=== PATIENT | male | born 1955 | race Caucasian/White ===

== ENCOUNTER 2024-12-30 14:08 | Outpatient (AMB) | payer MEDICARE, SELFPAY ==
--- OUTSIDE RECORDS SUMMARY | 2024-12-30 14:54 | XMS_ITS | Clinical Summary ---
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 Name Role Phone Irish Latif NP Primary Care Provider [phone] Allergies Active Allergy Reactions Criticality Noted Date Comments Pollen Extracts 04/30/2021 Medications simvastatin (ZOCOR) 20 mg tablet TAKE 1 TABLET BY MOUTH EVERYDAY AT BEDTIME 90 tablet 3 05/20/2024 Active pantoprazole (PROTONIX) 40 mg EC tablet TAKE 1 TABLET BY MOUTH EVERY DAY 90 tablet 1 08/13/2024 Active montelukast (SINGULAIR) 10 mg tablet TAKE 1 TABLET BY MOUTH EVERYDAY AT BEDTIME 90 tablet 1 08/13/2024 Active valsartan-hydro CHLOROthiazide (DIOVAN-HCT) 160-25 mg per tablet TAKE 1 TABLET BY MOUTH EVERY DAY 90 tablet 1 08/14/2024 Active gabapentin (NEURONTIN) 300 mg capsule TAKE 1 CAPSULE BY MOUTH FOUR TIMES A DAY 360 capsule 1 08/19/2024 Active diclofenac (VOLTAREN) 75 mg EC tablet TAKE 1 TABLET BY MOUTH 2 TIMES DAILY FOR 60 DAYS. 60 tablet 1 09/30/2024 Active traZODone (DESYREL) 100 mg tablet TAKE 1 TABLET BY MOUTH AT BEDTIME NEEDED FOR SLEEP. 90 tablet 1 10/03/2024 Active Active Problems Problem Noted Date Diagnosed Date Primary insomnia 10/25/2023 Assessment & Plan (10/30/2024 3:29 PM EDT): Stable, continue trazodone. Allergic rhinitis 07/21/2022 Gastroesophageal reflux disease without esophagi tis 07/21/2022 Assessment & Plan (10/30/2024 3:29 PM EDT): GERD: Symptoms controlled on daily PPI. Continue current medication. Discussed lifestyle modifications (e.g. weight loss, waiting 2-3 hrs after eating before going to bed, sleeping with head of bed elevated, avoiding tobacco and alcohol, stress reduction), dietary modifications (e.g. avoiding fatty foods, caffeine, chocolate, spicy foods, carbonated drinks and peppermint), avoid NSAIDs/ASA. Other hyperlipidemia 07/21/2022 Assessment & Plan (10/30/2024 3:29 PM EDT): HLD: controlled on statin. Continue current dose. Reviewed SE associated with statin use. Low cholesterol diet advised as well as exercise and optimal weight control. Update lipid panel today. Assessment & Plan (06/04/2024 2:09 PM EST): Well-controlled lipid profile on current dose statin. Continue Inguinal hernia bilateral, non-recurrent 023 Neuropathy 07/21/2022 Assessment & Plan (10/30/2024 3:29 PM EDT): Stable, continue gabapentin. Ascending aortic aneurysm (CMS/HCC V24) 04/30/20 21 Overview (06/04/2024): His most recent echocardiogram is from 05/2024 revealing normal LVEF 55 to 60%, no wall motion abnormalities, normal LV wall thickness, normal RV size and function, without hemodynamically significant valve disease, and mildly dilated aorta at the sinus of Valsalva and ascending aorta at 4 cm, unchanged when compared to 2021 echo Assessment & Plan (06/04/2024 2:09 PM EST): The patient's aorta size has been stable across multiple echocardiograms. Discussed weight lifting restrictions of no more than 50 pounds, ideally less. We discussed avoiding straining and asking for help if something is heavy. He understands and agrees. Would continue intermittent echocardiographic surveillance every couple of years. Primary hypertension 04/30/2021 Assessment & Plan (10/30/2024 3:29 PM EDT): HTN: controlled. Continue current meds. Reviewed lifestyle mods to help manage HTN Including low sodium diet and exercise and optimal weight control. Check BMP today. Assessment & Plan (06/04/2024 2:09 PM EST): Well-controlled blood pressure on current ARB/thiazide diuretic combination. Continue his regular exercise and walking. Sick sinus syndrome (CMS/HCC V24, CMS/HCC V28) 1 07/01/2020 Overview (06/04/2024): [employer] single chamber pacemaker Noise on RV lead Low RV pacing percentage Assessment & Plan (06/04/2024 2:09 PM EST): The patient's device is normally functioning. He has a very low percent pacing burden. Continue in office and remote surveillance as per protocol Encounters Date Type Department Care Team Description 12/26/2024 1:20 AM EDT Ancillary Procedure [facility] - [address] [facility] [address] [place] [address] 10/31/2024 Telephone Internal Medicine - [address] [address] Irish Latif NP faxed order 10/30/2024 3:30 PM EDT Lab Draw Station - [address] [place] [address] Screening for metabolic disorder; Screening for prostate cancer; Encounter for lipid screening for cardiovascular disease; Screening for deficiency anemia 10/30/2024 3:00 PM EDT Office Visit Internal Medicine - [facility] [address] [place] [address] Irish Latif NP Adult general medical examination (Primary Dx); Screening for deficiency anemia; Screening for metabolic disorder; Encounter for lipid screening for cardiovascular disease; Screening for prostate cancer; Gastroesophageal reflux disease without esophagitis; Other hyperlipidemia; Primary hypertension; Neuropathy; Primary insomnia from Last 3 Months Immunizations Name Administration Dates Next Due COVID-19 (Pfizer/Comirnaty) 12yo and older 01/13 Influenza Quadravalent, 0.5ml (Fluad) 65yo and o lder 03/18/2021 Influenza Quadravalent, 0.5m l (Fluzone High-dose) 65yo and older 02/16/2022 Influenza Quadravalent, MDCK , 0.5ml, preservative free (Flucelvax) 6mo and older 01/30/2019,02/14/2018 Influenza trivalent, 0.5mL (Fluad) 65yo and olde r 01/17/2024,01/23/2023 Influenza trivalent, 0.5mL, preservative free (Fluarix; FluLaval; Fluzone) ages 6mo and older (Afluria) 3 years and older 01/15/2020 Influenza, Unspecified 02/12/2022 Moderna SARS-CoV-2 COVID-19, mRNA, LNP-S, preservative free 01/17/2024 Pfizer SARS-CoV-2 COVID-19, mRNA, LNP-S, preservative free 01/23/2023 Pneumococcal conjugate 20 va lent (Prevnar 20, PCV 20) 2mo and older 10/25/2023 Tdap Tetanus diptheria acell ular pertussis (Boostrix; Adacel) 7yo and older 07/21/2022 Surgical History Surgery Date Site/Laterality Comments OTHER SURGICAL HISTORY PROCEDURE: RI ARTHRP ACETBLR/PROX FEM PROSTC AGRFT/ALGRFT HERNIA REPAIR PROCEDURE: RI REPAIR FIRST ABDOMINAL WALL HERNIA HAND SURGERY 2011 Right PROCEDURE: HISTORICAL HAND SURGERY HIP ARTHROPLASTY 2013 Left PROCEDURE: HISTORICAL HIP REPLACEMENT OTHER SURGICAL HISTORY 2004 PROCEDURE: RI RAD RESECTION TUMOR SOFT TISSUE BACK/FLANK <5CM; COMMENT: resection schwannoma lower spine Medical History Medical History Date Comments Kidney stones DX:Kidney stones Family History Medical History Relation Name Comments Thyroid disease Father Breast cancer Mother Other cancer Mother Diabetes Sister Thyroid disease Sister Relation Name Status Comments Father Alive Mother Sister Social History Tobacco Use Types Packs/Day Years Used Date Smoking Tobacco: Never Smokeless Tobacco: Never Tobacco Cessation:Counseling Given: Not Answered Alcohol Use Standard Drinks/Week Comments Yes 14 (1 standard drink = 0.6 oz pu re alcohol) Housing Instability Answer Date Recorde d Are you worried that in the next 2 months you may not have stable housing? No 10/30/2024 Food Access & Nutrition Answer Date Rec orded Do you have access to a vari ety of food including fruits and vegetables? Yes 10/30/2024 Access to Healthcare Answer Date Record ed Within the last 3 months, ho w many times did you visit the emergency department for your medical care? 0 10/30/2024 Health Literacy Answer Date Recorded How often do you need to hav e someone help you when you read instructions, pamphlets, or other written material from your doctor or pharmacy? Never 10/30/2024 Caregiver: How often do you need to have someone help you when you read instructions, pamphlets, or other written material from your doctor or pharmacy? Not on file 10/30/2024 Financial Risk Answer Date Recorded How hard is it for you to pa y for the very basics like food, housing, medical care, and air conditioning / heating? Not very hard 10/30/2024 Transportation Answer Date Recorded Has the lack of transportati on kept you from meetings, work, or from getting things needed for daily living? No Has the lack of transportati on kept you from medical appointments or from getting medications? No 10/30/2024 Social Isolation Answer Date Recorded How often do you feel lonely or isolated from th ose around you? Never 10/30/2024 Food Risk Answer Date Recorded Within the past 12 months we worried whether our food would run out before we got money to buy more. Never true 10/30/2024 Within the past 12 months th e food we bought just didn't last and we didn't have money to get more. Never true 10/30/2024 Dependent Care Answer Date Recorded Do you need help finding or paying for care for your loved ones. For example, child care attendant or elderly care for an older adult? No 10/30/2024 Education Answer Date Recorded Do you think completing more education or training, like finishing a GED, going to college, or learning a trade, would be helpful for you? N/A 10/30/2024 Employment and Income Answer Date Recor ded During the last four weeks, have you been actively looking for work? No 10/30/2024 Living Situation Answer Date Recorded What is your living situation? 0 10/30/2024 Sex and Gender Information Value Date Recorded Sex Assigned at Not on file Legal Sex Male 6:48 AM EST Gender Identity Not on file Sexual Orientation Not on file Obstetrics History Last Filed Vital Signs Vital Sign Reading Time Taken Comments Blood Pressure 128/80 10/30/2024 3:12 PM EDT Pulse 73 10/30/2024 2:56 PM EDT Temperature - - Respiratory Rate - - Oxygen Saturation 98% 06/04/2024 11: 15 AM EST Inhaled Oxygen Concentration - - Weight 74.8 kg (164 lb 12.8 oz) 10/30/2024 2:56 PM EDT Height 180.3 cm (5' 11 ) 10/30/2024 2:56 PM EDT Body Mass Index 22.98 10/30/2024 2:56 PM EDT Plan of Treatment Upcoming Encounters Date Type Department Care Team (Late st Contact Info) Description 12/31/2024 10:30 AM EDT Ancillary Procedure [facility] - [facility] [address] [facility] [address] [place] [address] 02/18/2025 1:00 PM EDT Office Visit General Surgery - [place] [address] [facility] [address] [place] [address] Hortencia Glynn MD 175 [facility] [address] [place] [address] 05/02/2025 1:00 PM EST Office Visit [facility] - [facility] [address] [place] [address] Irish Latif NP [address] [place] [address] Health Maintenance Due Date Last Done Comments Zoster Vaccines (1 of 2) 2005 COVID-19 Vaccine ( season) 2024 01/17/2024, 01/14/2024, 02/18/2023, Additional history exists Influenza Vaccine (#1) 2025 , 01/23/2023, 02/16/2022, Additional history exists Falls Risk Assessment 10/30/2025 10/30/2024 Hypertension/CHF/CAD Annual BMP Blood Test 10/30/2025 10/30/2024, 04/30/2024, 10/30/2023 Medicare Annual Wellness Visit 10/30/2025 10/30/2024, 07/25/2023 Social Influencers of Health Screening 10/30/2025 10/30/2024 Colorectal Cancer Screening: Colonoscopy 04/30/2027 04/30/2017 Cholesterol Screening (Lipid Panel) 10/30/2029 10/30/2024, 04/30/2024, 07/25/2023 RSV Immunization Adult Patients (1 - 1-dose 75+ series) 2030 DTaP,Tdap,and Td Vaccines (2 - Td or Tdap) 07/21/2032 07/21/2022 Hepatitis C Screening Completed 07/21/2022 Pneumococcal Vaccine: 50+ Years Completed 10/25/2023 Depression Screening Completed 10/30/2024 HIB Vaccines Aged Out No longer eligi ble based on patient's age to complete this topic HPV Vaccines Aged Out No longer eligi ble based on patient's age to complete this topic Hepatitis A Vaccines Aged Out No long er eligible based on patient's age to complete this topic Hepatitis B Vaccines Aged Out No long er eligible based on patient's age to complete this topic IPV Vaccines Aged Out No longer eligi ble based on patient's age to complete this topic MMR Vaccines Aged Out No longer eligi ble based on patient's age to complete this topic Meningococcal ACWY Vaccine Aged Out N o longer eligible based on patient's age to complete this topic Meningococcal B Vaccine Aged Out No l onger eligible based on patient's age to complete this topic RSV Immunization Patients Under 20 months Aged Out No longer eligible based on patient's age to complete this topic Varicella Vaccines Aged Out No longer eligible based on patient's age to complete this topic Medical Devices Implanted Type Area Car Blocker Device Identifier Shelf Expiration Date Model / Serial / Lot Abbt-ju 1210 Accent(Tm) Sr Rf [id number] Implanted: (Quantity not on file) Cardiac Pacemaker [facility] 1210 ACCENT(TM) SR RF / [id number] / Procedures Procedure Name Priority Date/Time Associated Diagnosis Comments CARDIAC DEVICE CHECK- REMOTE- MURJ Routine 12/26/2024 1:16 AM EDT COMPLETE BLOOD COUNT Routine 10/30/2024 3:24 PM EDT Screening for deficiency anemia COMPREHENSIVE METABOLIC PANEL Routine 10/30/2024 3:24 PM EDT Screening for metabolic disorder LIPID PANEL WITH REFLEX TO DIRECT LDL Routine 10/30/2024 3:24 PM EDT Screening for metabolic disorder Encounter for lipid screening for cardiovascular disease PROSTATE SPECIFIC ANTIGEN SCREEN Routine 10/30/2024 3:24 PM EDT Screening for prostate cancer HEMOGLOBIN A1C Routine 10/30/2024 3:24 PM EDT Screening for metabolic disorder HM HEPATITIS C SCREENING Routine 07/21/2022 from Last 3 Months or Most Recently Relevant to Health Maintenance Results * Cardiac device check - Remote- MURJ (12/26/2024 1:16 AM EDT) Date Time Interrogation Session [id number] CV DEVICE CHECK Type Interrogation Session Remote Scheduled CV DEVICE CHECK Implantable Pulse Generator Car Blocker [employer] CV DEVICE CHECK Implantable Pulse Generator Type IPG CV DEVICE CHECK Implantable Pulse Generator Model 1210 Accent(TM) SR RF CV DEVICE CHECK Implantable Pulse Generator Serial Number [id number] CV DEVICE CHECK Implantable Pulse Generator Implant Date [id number] CV DEVICE CHECK Battery Remaining Percentage 27.00 CV DEVICE CHECK Battery Remaining Longevity 38.0 CV DEVICE CHECK Battery Voltage 2.920 CV D EVICE CHECK Battery INSTANTIZER OPERATOR Trigger 2.600 CV DEVICE CHECK Battery Status Middle of Service CV DEVICE CHECK Jc Statistic RV Percent Paced 1.00 CV DEVICE CHECK Lead Channel Sensing Intrinsic Amplitude 4.600 CV DEVICE CHECK Lead Channel Setting Sensing Sensitivity 3.50 CV DEVICE CHECK Lead Channel Impedance Value 340 CV DEVICE CHECK Lead Channel Setting Pacing Amplitude 1.000 CV DEVICE CHECK Lead Channel Setting Pacing Pulse Width 0.5 CV DEVICE CHECK Jc Setting Mode (NBG Code) VVI CV DEVICE CHECK Jc Setting Lower Rate Limit 50 CV DEVICE CHECK Jc Setting Maximum Sensor Rate 130 CV DEVICE CHECK Date of Service 2025-01-10 CV DEVICE CHECK Anatomical Region Laterality Modality Device Interroga tion 12/25/2024 12:1 7 PM EDT Impressions 12/25/2024 1:55 PM EDT Normal Remote: With Events * Normal Device Function * Events or Alerts: Know RV lead noise / Monitoring * Battery: Battery is at 27%, 3.17 yrs * Sensing, impedance and thresholds reviewed * Programmed parameters reviewed * Presenting rhythm reviewed * Heart Rate Histograms reviewed Narrative Procedure Note Barrett Shaffer MD - 12/26/2024 IMPRESSION: Normal Remote: With Events * Normal Device Function * Events or Alerts: Know RV lead noise / Monitoring * Battery: Battery is at 27%, 3.17 yrs * Sensing, impedance and thresholds reviewed * Programmed parameters reviewed * Presenting rhythm reviewed * Heart Rate Histograms reviewed us Barrett Shaffer MD CV IMPLANTABLE CARDIAC DEVICE PROCEDURES Final Result * Prostate specific antigen screen (10/30/2024 3:24 PM EDT) PSA 0.83 0.00 - 4.00 ng/mL LAB CHEMISTRY METHOD 10/30/2024 7:13 PM EDT [facility] Blood Venous blood specimen / Unknown Venipuncture / Unknown 10/30/2024 3:24 PM EDT 10/30/2024 3:24 PM EDT Narrative [facility] - 10/30/2024 7:13 PM EDT The Siemens Advia Centaur Chemiluminescent Immunoassay is used. Results obtained with different assay methods or kits cannot be used interchangeably. Results cannot be interpreted as absolute evidence of the presence or absence of malignant disease. us Irish Latif NP LAB BLOOD ORDERABLES Final Resu lt [facility] [address] [place] [address], [place] [phone] * (ABNORMAL) Lipid panel with reflex to direct LDL (10/30/2024 3:24 PM EDT) [facility] Cholesterol 175 0 - 200 mg/dL LAB CHEMISTRY METHOD 10/30/2024 6:46 PM EDT [facility] Triglycerides 196(H) 0 - 150 mg/dL LAB CHEMISTRY METHOD 10/30/2024 6:46 PM EDT [facility] HDL 51 >=40 mg/dL LAB CHEMISTRY METHOD 10/30/2024 6:46 PM EDT [facility] LDL Calculated 85 0 - 100 mg/dL LAB CHEMISTRY METHOD 10/30/2024 6:46 PM EDT [facility] VLDL Cholesterol José Miguel 39.2 mg/dL LAB CHEMISTRY METHOD 10/30/2024 6:46 PM EDT [facility] Non HDL Chol. (LDL+VLDL) 124 <145 mg/dL LAB CHEMISTRY METHOD 10/30/2024 6:46 PM EDT [facility] Chol/HDL Ratio 3.4 0.0 - 4.4 LAB CHEMISTRY METHOD 10/30/2024 6:46 PM EDT [facility] Blood Venous blood specimen / Unknown Venipuncture / Unknown 10/30/2024 3:24 PM EDT 10/30/2024 3:24 PM EDT Irish Latif BOLT THREADER LAB BLOOD ORDERABLES Final Resu lt [facility] [address] [place] [address], [place] [phone] * Complete blood count (10/30/2024 3:24 PM EDT) [facility] WBC 8.1 4.8 - 10.8 K/mcL LAB HEMETOLOGY METHOD 10/30/2024 6:57 PM EDT [facility] RBC 4.60 4.50 - 5.50 M/mcL LAB HEMETOLOGY METHOD 10/30/2024 6:57 PM EDT [facility] Hemoglobin 14.1 13.5 - 17.5 g/dL LAB HEMETOLOGY METHOD 10/30/2024 6:57 PM EDT [facility] Hematocrit 42.4 42.0 - 54.0 % LAB HEMETOLOGY METHOD 10/30/2024 6:57 PM EDT [facility] MCV 92.2 79.0 - 98.0 FL LAB HEMETOLOGY METHOD 10/30/2024 6:57 PM EDT [facility] MCH 30.7 27.0 - 32.0 pcg LAB HEMETOLOGY METHOD 10/30/2024 6:57 PM EDT [facility] MCHC 33.3 32.0 - 37.0 g/dL LAB HEMETOLOGY METHOD 10/30/2024 6:57 PM EDT [facility] RDW 13.1 11.0 - 15.0 % LAB HEMETOLOGY METHOD 10/30/2024 6:57 PM EDT [facility] Platelets 341 130 - 400 K/mcL LAB HEMETOLOGY METHOD 10/30/2024 6:57 PM EDT [facility] MPV 9.1 7.0 - 11.0 FL LAB HEMETOLOGY METHOD 10/30/2024 6:57 PM EDT [facility] NRBC 0.0 <1.0 % LAB HEMETOLOGY METHOD 10/30/2024 6:57 PM EDT [facility] NRBC Absolute 0.00 <0.10 K/mcL LAB HEMETOLOGY METHOD 10/30/2024 6:57 PM EDT [facility] Blood Venous blood specimen / Unknown Venipuncture / Unknown 10/30/2024 3:24 PM EDT 10/30/2024 3:24 PM EDT Irish Chambersti BOLT THREADER LAB BLOOD ORDERABLES Final Resu lt [facility] [address] [place] [address], [place] [phone] * Hemoglobin A1c (10/30/2024 3:24 PM EDT) Pathologist [facility] Hemoglobin A1C 5.7 <6.5 % LAB CHEMISTRY METHOD 10/30/2024 8:39 PM EDT [facility] Mean Bld Glu Estim. 117 mg/dL LAB CHEMISTRY METHOD 10/30/2024 8:39 PM EDT [facility] Blood Venous blood specimen / Unknown Venipuncture / Unknown 10/30/2024 3:24 PM EDT 10/30/2024 3:24 PM EDT Irish Chambersti LAB BLOOD ORDERABLES Final Resu lt Performing Organization Address City/[facility]/ZIP Co de Phone Number [facility] [address] [place] [address], [place] [phone] * (ABNORMAL) Comprehensive metabolic panel (10/30/2024 3:24 PM EDT) [facility] Sodium 140 133 - 145 mmol/L LAB CHEMISTRY METHOD 10/30/2024 6:46 PM EDT [facility] Potassium 4.0 3.5 - 5.5 mmol/L LAB CHEMISTRY METHOD 10/30/2024 6:46 PM EDT [facility] Chloride 102 96 - 110 mmol/L LAB CHEMISTRY METHOD 10/30/2024 6:46 PM EDT [facility] CO2 30 21 - 32 mmol/L LAB CHEMISTRY METHOD 10/30/2024 6:46 PM EDT [facility] Anion Gap 8 3 - 11 LAB CHEMISTRY METHOD 10/30/2024 6:46 PM EDT [facility] Glucose 100 70 - 100 mg/dL LAB CHEMISTRY METHOD 10/30/2024 6:46 PM [facility] BUN 26(H) 5 - 25 mg/dL LAB CHEMISTRY METHOD 10/30/2024 6:46 PM [facility] Creatinine 0.90 0.70 - 1.30 mg/dL LAB CHEMISTRY METHOD 10/30/2024 6:46 PM [facility] eGFR 92 >=60 mL/min/1. 73m2 LAB CHEMISTRY METHOD 10/30/2024 6:46 PM [facility] Comment:Calculation based on the Chronic Kidney Disease Epidemiology Collaboration (CKD-EPI) equation refit without adjustment for race. BUN/Creatinine Ratio 28.9 LAB CHEMISTRY METHOD 10/30/2024 6:46 PM [facility] Calcium 9.2 8.5 - 10.5 mg/dL LAB CHEMISTRY METHOD 10/30/2024 6:46 PM [facility] AST (SGOT) 18 10 - 42 unit/L LAB CHEMISTRY METHOD 10/30/2024 6:46 PM [facility] ALT (SGPT) 23 10 - 60 unit/L LAB CHEMISTRY METHOD 10/30/2024 6:46 PM [facility] Alkaline Phosphatase 47 42 - 121 unit/L LAB CHEMISTRY METHOD 10/30/2024 6:46 PM [facility] Total Protein 6.7 6.0 - 8.0 g/dL LAB CHEMISTRY METHOD 10/30/2024 6:46 PM [facility] Albumin 4.2 3.2 - 5.0 g/dL LAB CHEMISTRY METHOD 10/30/2024 6:46 PM [facility] Total Bilirubin 1.1 0.0 - 1.4 mg/dL LAB CHEMISTRY METHOD 10/30/2024 6:46 PM [facility] Blood Venous blood specimen / Unknown Venipuncture / Unknown 10/30/2024 3:24 PM EDT 10/30/2024 3:24 PM EDT Irish Latif NP LAB BLOOD ORDERABLES Final Resu lt [facility] [address] [place] [address], [place] [phone] * Hepatitis C Screening (07/21/2022) Hepatitis C Screening negative Historical Provider HEALTH MAINTENANCE Final Result from Last 3 Months or Most Recently Relevant to Health Maintenance Insurance MEDICARE [facility] Advance Directives Documents on File Type Date Recorded 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
--- OUTSIDE RECORDS SUMMARY | 2024-12-30 14:54 | XMS_ITS ---
Author Name [facility] Organization Unknown Care Team Organization Name Specialty Phone Email Start Date End [facility] Irish Latif Primary Care 01/19/20232023
== END 2024-12-30 14:09 | disposition home or self-care (01) ==
LOC: HO.HMGAL 14:08
PROVIDERS: PCP Internal Medicine; Visit Provider Registered Nurse Emergency
DX: J30.89 Other allergic rhinitis (principal)
CPT/HCPCS: 95117; 95165

== ENCOUNTER 2025-01-20 13:52 | Outpatient (AMB) | payer MEDICARE, SELFPAY ==
--- OUTSIDE RECORDS SUMMARY | 2025-01-20 16:14 | XMS_ITS | Clinical Summary ---
Author Organization [place] [address] [facility] Building Address [address] [place] [address] Phone Care Team Providers Care Exercise Physiology Professor Name Role Phone Irish Latif NP Primary Care Provider [phone] Allergies Active Allergy Reactions Criticality Noted Date [...] CMS/HCC V28) 1 07/01/2020 Overview (06/04/2024): [employer] single chamber pacemaker Noise on RV lead Low RV pacing percentage Assessment & Plan (06/04/2024 2:09 PM EST): The patient's device is normally functioning. He has a very low percent pacing burden. Continue in office and remote surveillance as per protocol Encounters Date Type Department Care Team Description 12/31/2024 10:30 AM EDT Ancillary Procedure [facility] Cardiology [facility] [address] [address] Encounter for adjustment or management of cardiac device 12/26/2024 1:20 AM EDT Ancillary Procedure [facility] 154 300 [facility] 154 [place] [address] 10/31/2024 Telephone Internal Medicine - [address] [phone] Irish Latif NP 10/30/2024 3:30 PM EDT Lab Draw Station - [address] [address] Screening for metabolic disorder; Screening for prostate cancer; Encounter for lipid screening for cardiovascular disease; Screening for deficiency anemia 10/30/2024 3:00 PM EDT Office Visit Internal Medicine - [address] [place] [address] Irish Latif, CORAL Adult general medical examination (Primary Dx); Screening [...] Date Site/Laterality Comments OTHER SURGICAL HISTORY PROCEDURE: [place] ARTHRP ACETBLR/PROX FEM PROSTC AGRFT/ALGRFT HERNIA REPAIR PROCEDURE: [place] REPAIR FIRST ABDOMINAL WALL HERNIA HAND SURGERY 2011 Right PROCEDURE: HISTORICAL HAND SURGERY HIP ARTHROPLASTY 2013 Left PROCEDURE: HISTORICAL HIP REPLACEMENT OTHER SURGICAL HISTORY 2004 PROCEDURE: [place] RAD RESECTION TUMOR SOFT TISSUE BACK/FLANK <5CM; [...] care for your loved ones. For example, early childhood associate teacher or elderly care for an older adult? [...] Care Team (Late st Contact Info) Description 02/25/2025 1:30 PM EDT Office Visit General Surgery - [place] [facility] [address] [place] [phone] Hortencia Glynn MD [address] [place] [phone] 05/02/2025 1:00 PM EST Office Visit Internal Medicine - [place] [address] [place] [address] Irish Latif NP [address] [place] [address] 01/06/2026 10:30 AM EDT Ancillary Procedure [facility] 154 300 [facility] [address] [place] [phone] Health Maintenance Due Date Last Done Comments Zoster Vaccines (1 of 2) 2005 COVID-19 Vaccine ( season) 2025 01/17/2024, 01/14/2024, 02/18/2023, Additional history exists Influenza [...] this topic Medical Devices Implanted Type Area Appellate Law Clerk Device Identifier Shelf Expiration Date Model / Serial / Lot Abbt-Stju 1210 Accent(Tm) Sr Rf [id number] Implanted: (Quantity not on file) Cardiac Pacemaker [facility] [employer] [facility] [employer] 1210 ACCENT(TM) SR RF / [id number] / Abbt-Stju Accent Sr Rf [id number] Implanted: (Quantity not on file) Cardiac Pacemaker [facility] [facility] ACCENT SR RF 1210 / [id number] / Procedures Procedure Name Priority Date/Time Associated Diagnosis Comments CARDIAC DEVICE CHECK- IN CLINIC- MURJ Routine 12/31/2024 11:06 AM EDT Encounter for adjustment or management of cardiac device CARDIAC DEVICE CHECK- REMOTE- MURJ Routine 12/26/2024 [...] Recently Relevant to Health Maintenance Results * CARDIAC DEVICE CHECK- IN CLINIC- MURJ (12/31/2024 11:06 AM EDT) Date Time Interrogation Session [id number] CV DEVICE CHECK Implantable Pulse Generator Appellate Law Clerk [employer]ake CV DEVICE CHECK Implantable Pulse Generator Type IPG CV DEVICE CHECK Implantable Pulse Generator Model Accent SR RF 1210 CV DEVICE CHECK Implantable Pulse Generator Serial Number [id number] CV DEVICE CHECK Implantable Pulse Generator Implant Date 20130902 CV DEVICE CHECK Battery Voltage 2.920 CV D EVICE CHECK Battery Status Middle of Service CV DEVICE CHECK Lead Channel Sensing Intrinsic Amplitude 7.200 CV DEVICE CHECK Lead Channel Setting Sensing Sensitivity 3.50 CV DEVICE CHECK Lead Channel Impedance Value 363 CV DEVICE CHECK Lead Channel Pacing Threshold Amplitude 0.750 CV DEVICE CHECK Lead Channel RV Pacing Threshold Date 2024-12-31 CV DEVICE CHECK Lead Channel Setting Pacing Amplitude 1.000 CV DEVICE CHECK Lead Channel Setting Pacing Pulse Width 0.5 CV DEVICE CHECK Jc Setting Mode (NBG Code) VVI CV DEVICE CHECK Jc Setting Lower Rate Limit 50 CV DEVICE CHECK Jc Setting Maximum Sensor Rate 130 CV DEVICE CHECK Date of Service 2025-01-01 CV DEVICE CHECK Anatomical Region Laterality Modality Device Interroga tion 12/31/2024 Impressions 01/03/2025 8:59 AM EDT Normal In-Office: No Events * Normal Device Function * Alerts or events: None * Battery: MOS, 3.10 yrs * Sensing, impedance and thresholds reviewed and tested * Presenting Rhythm: VS 70s * Heart Rate Histograms reviewed * Pacing and Detection Parameters were evaluated Narrative Procedure Note Barrett Shaffer MD - 01/03/2025 IMPRESSION: Normal In-Office: No Events * Normal Device Function * Alerts or events: None * Battery: MOS, 3.10 yrs * Sensing, impedance and thresholds reviewed and tested * Presenting Rhythm: VS 70s * Heart Rate Histograms reviewed * Pacing and Detection Parameters were evaluated us Order Referral Cardiovascular CV IMPLANTABLE CAR DIAC DEVICE PROCEDURES Final Result * Cardiac device check - Remote- MURJ (12/26/2024 1:16 AM EDT) Date Time Interrogation Session [id number] CV DEVICE CHECK Type Interrogation Session Remote Scheduled CV DEVICE CHECK Implantable Pulse Generator Appellate Law Clerk [employer]ake CV DEVICE CHECK Implantable Pulse Generator Type IPG CV DEVICE CHECK Implantable Pulse Generator Model 1210 Accent(TM) SR RF CV DEVICE CHECK Implantable Pulse Generator Serial Number [id number] CV DEVICE CHECK Implantable Pulse Generator Implant Date 20130902 CV DEVICE CHECK Battery Remaining Percentage 27.00 CV DEVICE CHECK Battery Remaining Longevity 38.0 CV DEVICE CHECK Battery Voltage 2.920 CV D EVICE CHECK Battery MANAGER MOBILE Trigger 2.600 CV DEVICE CHECK Battery Status [...] rhythm reviewed * Heart Rate Histograms reviewed Barrett Shaffer MD CV IMPLANTABLE CARDIAC DEVICE PROCEDURES Final Result * Prostate specific antigen screen (10/30/2024 3:24 PM EDT) PSA 0.83 0.00 - 4.00 ng/mL LAB CHEMISTRY METHOD 10/30/2024 7:13 PM EDT [facility] Blood Venous blood specimen / Unknown Venipuncture / Unknown 10/30/2024 3:24 PM EDT 10/30/2024 3:24 PM EDT Narrative [facility] - 10/30/2024 7:13 PM EDT The Siemens Advia Centaur Chemiluminescent Immunoassay is used. Results obtained with different assay methods or kits cannot be used interchangeably. Results cannot be interpreted as absolute evidence of the presence or absence of malignant disease. Irish Latif NP LAB BLOOD ORDERABLES Final Resu lt Performing Organization Address City/[facility]/ZIP Co de Phone Number [facility] [address] [place] [address], [place] [phone] * (ABNORMAL) Lipid panel with reflex to direct LDL (10/30/2024 3:24 PM EDT) [facility] Cholesterol 175 0 - 200 mg/dL LAB CHEMISTRY METHOD 10/30/2024 6:46 PM EDT [facility] Triglycerides 196(H) 0 - 150 mg/dL LAB CHEMISTRY METHOD 10/30/2024 6:46 PM EDT [facility] HDL 51 >=40 mg/dL LAB CHEMISTRY METHOD 10/30/2024 6:46 PM EDT [facility] LDL Calculated 85 0 - 100 mg/dL LAB CHEMISTRY METHOD 10/30/2024 6:46 PM EDT [facility] VLDL Cholesterol José Miguel 39.2 mg/dL LAB CHEMISTRY METHOD 10/30/2024 6:46 PM EDT [facility] Non HDL Chol. (LDL+VLDL) 124 <145 mg/dL LAB CHEMISTRY METHOD 10/30/2024 6:46 PM EDT [facility] Chol/HDL Ratio 3.4 0.0 - 4.4 LAB CHEMISTRY METHOD 10/30/2024 6:46 PM EDT [facility] Blood Venous blood specimen / Unknown Venipuncture / Unknown 10/30/2024 3:24 PM EDT 10/30/2024 3:24 PM EDT Irish Latif NP LAB BLOOD ORDERABLES Final Resu lt Performing Organization Address [facility]/ZIP Co de Phone Number [facility] [address] [place] [address], * Complete blood count (10/30/2024 3:24 PM EDT) [facility] WBC 8.1 4.8 - 10.8 K/mcL LAB HEMETOLOGY METHOD 10/30/2024 6:57 PM EDT [facility] RBC 4.60 4.50 - 5.50 M/mcL LAB HEMETOLOGY METHOD 10/30/2024 6:57 PM EDT [facility] Hemoglobin 14.1 13.5 - 17.5 g/dL LAB HEMETOLOGY METHOD 10/30/2024 6:57 PM EDT [facility] Hematocrit 42.4 42.0 - 54.0 % LAB HEMETOLOGY METHOD 10/30/2024 6:57 PM EDT [facility] MCV 92.2 79.0 - 98.0 FL LAB HEMETOLOGY METHOD 10/30/2024 6:57 PM EDT [facility] MCH 30.7 27.0 - 32.0 pcg LAB HEMETOLOGY METHOD 10/30/2024 6:57 PM EDT [facility] MCHC 33.3 32.0 - 37.0 g/dL LAB HEMETOLOGY METHOD 10/30/2024 6:57 PM EDT [facility] RDW 13.1 11.0 - 15.0 % LAB HEMETOLOGY METHOD 10/30/2024 6:57 PM EDT [facility] Platelets 341 130 - 400 K/mcL LAB HEMETOLOGY METHOD 10/30/2024 6:57 PM EDT [facility] MPV 9.1 7.0 - 11.0 FL LAB HEMETOLOGY METHOD 10/30/2024 6:57 PM EDT [facility] NRBC 0.0 <1.0 % LAB HEMETOLOGY METHOD 10/30/2024 6:57 PM EDT [facility] NRBC Absolute 0.00 <0.10 K/[facility] LAB HEMETOLOGY METHOD 10/30/2024 6:57 PM EDT [facility] Blood Venous blood specimen / Unknown Venipuncture / Unknown 10/30/2024 3:24 PM EDT 10/30/2024 3:24 PM EDT [facility] LAB BLOOD ORDERABLES Final Resu lt Performing Organization Address City/[facility]/ZIP Co de Phone Number [facility] [address] [place] [address], [place] [phone] * Hemoglobin A1c (10/30/2024 3:24 PM EDT) Hemoglobin A1C 5.7 <6.5 % LAB CHEMISTRY METHOD 10/30/2024 8:39 PM EDT [facility] Mean Bld Glu Estim. 117 mg/dL LAB CHEMISTRY METHOD 10/30/2024 8:39 PM EDT [facility] Blood Venous blood specimen / Unknown Venipuncture / Unknown 10/30/2024 3:24 PM EDT 10/30/2024 3:24 PM EDT Irish Latif LAB BLOOD ORDERABLES Final Resu lt Performing Organization Address City/[facility]/ZIP Co de Phone Number [facility] [address] [place] [address], [place] [phone] * (ABNORMAL) Comprehensive metabolic panel (10/30/2024 3:24 PM EDT) Pathologist [facility] Sodium 140 133 - 145 mmol/L LAB CHEMISTRY METHOD 10/30/2024 6:46 PM EDT [facility] Potassium 4.0 3.5 - 5.5 mmol/L LAB CHEMISTRY METHOD 10/30/2024 6:46 PM EDT [facility] Chloride 102 96 - 110 mmol/L LAB CHEMISTRY METHOD 10/30/2024 6:46 PM [facility] CO2 30 21 - 32 mmol/L LAB CHEMISTRY METHOD 10/30/2024 6:46 PM [facility] Anion Gap 8 3 - 11 LAB CHEMISTRY METHOD 10/30/2024 6:46 PM [facility] Glucose 100 70 - 100 mg/dL LAB CHEMISTRY METHOD 10/30/2024 6:46 PM [facility] BUN 26(H) 5 - 25 mg/dL LAB CHEMISTRY METHOD 10/30/2024 6:46 PM [facility] Creatinine 0.90 0.70 - 1.30 mg/dL LAB CHEMISTRY METHOD 10/30/2024 6:46 PM [facility] eGFR 92 >=60 mL/min/1. 73m2 LAB CHEMISTRY METHOD 10/30/2024 6:46 PM [facility] Comment:Calculation based on the Chronic Kidney Disease Epidemiology Collaboration (CKD-EPI) equation refit without adjustment for race. BUN/Creatinine Ratio 28.9 LAB CHEMISTRY METHOD 10/30/2024 6:46 PM [facility] Calcium 9.2 8.5 - 10.5 mg/dL LAB CHEMISTRY METHOD 10/30/2024 6:46 PM [facility] AST (SGOT) 18 10 - 42 unit/L LAB CHEMISTRY METHOD 10/30/2024 6:46 PM [facility] ALT (SGPT) 23 10 - 60 unit/L LAB CHEMISTRY METHOD 10/30/2024 6:46 PM [facility] Alkaline Phosphatase 47 42 - 121 unit/L LAB CHEMISTRY METHOD 10/30/2024 6:46 PM [facility] Total Protein 6.7 6.0 - 8.0 g/dL LAB CHEMISTRY METHOD 10/30/2024 6:46 PM [facility] Albumin 4.2 3.2 - 5.0 g/dL LAB CHEMISTRY METHOD 10/30/2024 6:46 PM EDT [facility] Total Bilirubin 1.1 0.0 - 1.4 mg/dL LAB CHEMISTRY METHOD 10/30/2024 6:46 PM EDT [facility] Blood Venous blood specimen / Unknown Venipuncture / Unknown 10/30/2024 3:24 PM EDT 10/30/2024 3:24 PM EDT Irish Latif MOBILE SOLUTIONS ARCHITECT LAB BLOOD ORDERABLES Final Resu lt [facility] [address] [place] [address], * Hepatitis C Screening (07/21/2022) [facility] Signature Hepatitis C Screening negative Historical Provider HEALTH MAINTENANCE Final Result from Last 3 Months or Most Recently Relevant to Health Maintenance Insurance MEDICARE [facility] Advance Directives Documents on File Type Date Recorded Patient Obstetrics Specialist Expl anation Health Care Decision (hx) 09/21/2022 HE ALTH CARE PROXY Care Teams Exercise Physiology Professor Relationship Specialty Start Date End Date Irish Latif NP [address] [facility] [place] [address] PCP - General 05/03/22
== END 2025-01-20 14:05 | disposition home or self-care (01) ==
LOC: HO.HMGAL 13:52
PROVIDERS: PCP Internal Medicine; Visit Provider Registered Nurse Emergency
DX: J30.89 Other allergic rhinitis (principal)
CPT/HCPCS: 95117; 95165

== ENCOUNTER 2025-02-03 14:21 | Outpatient (AMB) | payer MEDICARE, SELFPAY | END 2025-02-03 14:23 | disposition home or self-care (01) | LOC: HO.HMGAL 14:21 | PROVIDERS: PCP Internal Medicine; Visit Provider Registered Nurse Emergency | DX: J30.89 Other allergic rhinitis (principal) | CPT/HCPCS: 95117; 95165 ==

== ENCOUNTER 2025-02-17 12:30 | Outpatient (AMB) | payer MEDICARE, SELFPAY ==
--- OUTSIDE RECORDS SUMMARY | 2025-02-17 14:50 | XMS_ITS | Clinical Summary ---
Author Organization [place] [address] [facility] Building Address [address] [place] [address] [place] [address] Phone Care Team Providers Care Counseling Center Director Name Role Phone Irish Latif NP Primary Care Provider [phone] Allergies Active Allergy Reactions Criticality Noted Date Comments Pollen Extracts 04/30/2021 Medications simvastatin (ZOCOR) 20 mg tablet TAKE 1 TABLET BY MOUTH EVERYDAY AT BEDTIME 90 tablet 3 5 Active valsartan-hydr oCHLOROthiazid e (DIOVAN-HCT) 160-25 mg per tablet TAKE 1 TABLET BY MOUTH EVERY DAY 90 tablet 1 5 Active diclofenac (VOLTAREN) 75 mg EC tablet TAKE 1 TABLET BY MOUTH 2 TIMES DAILY FOR 60 DAYS. 60 tablet 1 5 Active traZODone (DESYREL) 100 mg tablet TAKE 1 TABLET BY MOUTH AT BEDTIME NEEDED FOR SLEEP. 90 tablet 1 5 Active pantoprazole (PROTONIX) 40 mg EC tablet TAKE 1 TABLET BY MOUTH EVERY DAY 90 tablet 1 5 Active montelukast (SINGULAIR) 10 mg tablet TAKE 1 TABLET BY MOUTH EVERYDAY AT BEDTIME 90 tablet 1 5 Active gabapentin (NEURONTIN) 300 mg capsule TAKE 1 CAPSULE BY MOUTH FOUR TIMES A DAY 360 capsule 1 5 Active pantoprazole (PROTONIX) 40 mg EC tablet TAKE 1 TABLET BY MOUTH EVERY DAY 90 tablet 1 5 025 Discontinued montelukast (SINGULAIR) 10 mg tablet TAKE 1 TABLET BY MOUTH EVERYDAY AT BEDTIME 90 tablet 1 5 025 Discontinued gabapentin (NEURONTIN) 300 mg capsule TAKE 1 CAPSULE BY MOUTH FOUR TIMES A DAY 360 capsule 1 5 025 Discontinued Active Problems Problem Noted Date Diagnosed Date [...] Description 12/31/2024 10:30 AM EDT Ancillary Procedure [facility] Cardiology [facility] - [address] [place] [phone] Encounter for adjustment or management of cardiac device 12/26/2024 1:20 AM EDT Ancillary Procedure [facility] Cardiology [facility] - [address] [place] [address] from Last 3 Months Immunizations Immunization Administration Dates Next Due COVID-19 (Pfizer/Comirnaty) 12yo and older 01/13 Influenza Quadravalent, 0.5m l (Fluad) 65yo and older 03/18/2021 Influenza Quadravalent, 0.5m l (Fluzone High-dose) 65yo and older 02/16/2022 Influenza Quadravalent, MDCK , 0.5ml, preservative free (Flucelvax) 6mo and older 01/30/2019,02/14/2018 Influenza trivalent, 0.5mL ( Fluad) 65yo and older 02/13/2025,01/17/2024,01/23/2023 Influenza trivalent, 0.5mL, preservative free (Fluarix; FluLaval; [...] Date Site/Laterality Comments OTHER SURGICAL HISTORY PROCEDURE: [place] ARTHRP ACETBLR/PROX FEM PROSTC AGRFT/ALGRFT HERNIA REPAIR PROCEDURE: [place] REPAIR FIRST ABDOMINAL WALL HERNIA HAND SURGERY 2011 Right PROCEDURE: HISTORICAL HAND SURGERY HIP ARTHROPLASTY 2013 Left PROCEDURE: HISTORICAL HIP REPLACEMENT OTHER SURGICAL HISTORY 2004 PROCEDURE: [place] RAD RESECTION TUMOR SOFT TISSUE BACK/FLANK <5CM; [...] for your loved ones. For example, child development director or elderly care for an older adult? [...] Date Recorded What is your living situation? Unrecognized valu e 10/30/2024 Sex and Gender Information Value Date [...] PM EDT Office Visit General Surgery - [place] [address] [facility] [address] [place] [phone] Hortencia Glynn MD [address] [place] [phone] 05/02/2025 1:00 PM EST Office Visit Internal Medicine - [facility] [address] [place] [address] Irish Latif NP [address] [place] [address] 01/06/2026 10:30 AM EDT Ancillary Procedure [facility] [address] [facility] [address] [place] [phone] Health Maintenance Due Date Last Done Comments Zoster Vaccines (1 of 2) 2005 Falls Risk Assessment 10/30/2025 10/30/2024 Hypertension/CHF/CAD Annual [...] 07/21/2032 07/21/2022 Hepatitis C Screening Completed 07/21/2022 Abdominal Aortic Aneurysm (AAA) Screen Discontinued 10/25/2023 Pneumococcal Vaccine: 50+ Years Completed 10/25/2023 Depression Screening Completed 10/30/2024 COVID-19 Vaccine Completed 02/13/2025, 08/2023, 01/14/2024, Additional history exists Influenza Vaccine Completed 02/13/2025, , 01/23/2023, Additional history exists HIB Vaccines Aged Out No longer eligi [...] this topic Medical Devices Implanted Type Area Retail General Manager Device Identifier Shelf Expiration Date Model / Serial / Lot Abbt-Stju 1210 Accent(Tm) Sr Rf [id number] Implanted: (Quantity not on file) Cardiac Pacemaker [facility] 1210 ACCENT(TM) SR RF / [id number] / Abbt-Stju Accent Sr Rf [id number] Implanted: (Quantity not on file) Cardiac Pacemaker [facility] [employer] ACCENT SR RF 1210 / [id number] / Procedures Procedure Name Priority Date/Time Associated Diagnosis Comments CARDIAC DEVICE CHECK- IN CLINIC- MURJ Routine 12/31/2024 11:06 AM EDT Encounter for adjustment or management of cardiac device CARDIAC DEVICE CHECK- REMOTE- MURJ Routine 12/26/2024 1:16 AM EDT COMPREHENSIVE METABOLIC PANEL Routine 10/30/2024 3:24 PM EDT Screening for metabolic disorder LIPID PANEL WITH REFLEX TO DIRECT LDL Routine 10/30/2024 3:24 PM EDT Screening for metabolic disorder Encounter for lipid screening for cardiovascular disease HM HEPATITIS C SCREENING Routine 07/21/2022 from Last 3 Months or Most Recently Relevant to Health Maintenance Results * CARDIAC DEVICE CHECK- IN CLINIC- MURJ (12/31/2024 11:06 AM EDT) Date Time Interrogation Session [id number] CV DEVICE CHECK Implantable Pulse Generator Retail General Manager [employer] CV DEVICE CHECK Implantable Pulse Generator Type IPG CV DEVICE CHECK Implantable Pulse Generator Model Accent SR RF 1210 CV DEVICE CHECK Implantable Pulse Generator Serial Number [id number] CV DEVICE CHECK Implantable Pulse Generator Implant [...] 1:16 AM EDT) Date Time Interrogation Session [id number] CV DEVICE CHECK Type Interrogation Session Remote Scheduled CV DEVICE CHECK Implantable Pulse Generator Retail General Manager [employer] CV DEVICE CHECK Implantable Pulse Generator Type IPG CV DEVICE CHECK Implantable Pulse Generator Model 1210 Accent(TM) SR RF CV DEVICE CHECK Implantable Pulse Generator Serial Number [id number] CV DEVICE CHECK Implantable Pulse Generator Implant Date 20130902 CV DEVICE CHECK Battery Remaining Percentage 27.00 CV DEVICE CHECK Battery Remaining Longevity 38.0 CV DEVICE CHECK Battery Voltage 2.920 CV D EVICE CHECK Battery FACE WORKER Trigger 2.600 CV DEVICE CHECK Battery Status [...] IMPLANTABLE CARDIAC DEVICE PROCEDURES Final Result * (ABNORMAL) Lipid panel with reflex to direct LDL (10/30/2024 3:24 PM EDT) Cholesterol 175 0 - 200 mg/dL LAB CHEMISTRY METHOD 10/30/2024 6:46 PM [facility] Triglycerides 196(H) 0 - 150 mg/dL LAB CHEMISTRY METHOD 10/30/2024 6:46 PM [facility] HDL 51 >=40 mg/dL LAB CHEMISTRY METHOD 10/30/2024 6:46 PM [facility] LDL Calculated 85 0 - 100 mg/dL LAB CHEMISTRY METHOD 10/30/2024 6:46 PM [facility] VLDL Cholesterol José Miguel 39.2 mg/dL LAB CHEMISTRY METHOD 10/30/2024 6:46 PM [facility] Non HDL Chol. (LDL+VLDL) 124 <145 mg/dL LAB CHEMISTRY METHOD 10/30/2024 6:46 PM [facility] Chol/HDL Ratio 3.4 0.0 - 4.4 LAB CHEMISTRY METHOD 10/30/2024 6:46 PM [facility] Blood Venous blood specimen / Unknown Venipuncture / Unknown 10/30/2024 3:24 PM EDT 10/30/2024 3:24 PM EDT us Irish Latif NP LAB BLOOD ORDERABLES Final Resu lt [facility] [address] [place] [address], [place] [phone] * (ABNORMAL) Comprehensive metabolic panel (10/30/2024 3:24 PM EDT) Sodium 140 133 - 145 mmol/L LAB CHEMISTRY METHOD 10/30/2024 6:46 PM EDT [facility] Potassium 4.0 3.5 - 5.5 mmol/L LAB CHEMISTRY METHOD 10/30/2024 6:46 PM [facility] Chloride 102 96 - 110 mmol/L LAB CHEMISTRY METHOD 10/30/2024 6:46 PM [facility] CO2 30 21 - 32 mmol/L LAB CHEMISTRY METHOD 10/30/2024 6:46 PM T [facility] Anion Gap 8 3 - 11 LAB CHEMISTRY METHOD 10/30/2024 6:46 PM [facility] Glucose 100 70 - 100 mg/dL LAB CHEMISTRY METHOD 10/30/2024 6:46 PM [facility] BUN 26(H) 5 - 25 mg/dL LAB CHEMISTRY METHOD 10/30/2024 6:46 PM T [facility] Creatinine 0.90 0.70 - 1.30 mg/dL LAB CHEMISTRY METHOD 10/30/2024 6:46 PM [facility] eGFR 92 >=60 mL/min/1. 73m2 LAB CHEMISTRY METHOD 10/30/2024 6:46 PM [facility] Comment:Calculation based on the Chronic Kidney Disease Epidemiology Collaboration (CKD-EPI) equation refit without adjustment for race. BUN/Creatinine Ratio 28.9 LAB CHEMISTRY METHOD 10/30/2024 6:46 PM T [facility] Calcium 9.2 8.5 - 10.5 mg/dL LAB CHEMISTRY METHOD 10/30/2024 6:46 PM EDT [facility] AST (SGOT) 18 10 - 42 unit/L LAB CHEMISTRY METHOD 10/30/2024 6:46 PM EDT [facility] ALT (SGPT) 23 10 - 60 unit/L LAB CHEMISTRY METHOD 10/30/2024 6:46 PM EDT [facility] Alkaline Phosphatase 47 42 - 121 unit/L LAB CHEMISTRY METHOD 10/30/2024 6:46 PM EDT [facility] Total Protein 6.7 6.0 - 8.0 g/dL LAB CHEMISTRY METHOD 10/30/2024 6:46 PM EDT [facility] Albumin 4.2 3.2 - 5.0 g/dL LAB CHEMISTRY METHOD 10/30/2024 6:46 PM EDT [facility] Total Bilirubin 1.1 0.0 - 1.4 mg/dL LAB CHEMISTRY METHOD 10/30/2024 6:46 PM EDT [facility] Blood Venous blood specimen / Unknown Venipuncture / Unknown 10/30/2024 3:24 PM EDT 10/30/2024 3:24 PM EDT Irish Latif SALES DATA ANALYST LAB BLOOD ORDERABLES Final Resu lt [facility] [address] [place] [address], * Hepatitis C Screening (07/21/2022) Hepatitis C Screening negative Historical Provider HEALTH MAINTENANCE Final Result from Last 3 Months or Most Recently Relevant to Health Maintenance Insurance MEDICARE [facility] Advance Directives Documents on File Type Date Recorded Patient Distribution Associate Expl anation Health Care Decision (hx) 09/21/2022 HE ALTH CARE PROXY Care Teams Counseling Center Director Relationship Specialty Start Date End Date Irish Latif NP [address] [place], [place] [address] [address] PCP - General 05/03/22
== END 2025-02-17 12:34 | disposition home or self-care (01) ==
LOC: HO.HMGAL 12:30
PROVIDERS: PCP Internal Medicine; Visit Provider Registered Nurse Emergency
DX: J30.89 Other allergic rhinitis (principal)
CPT/HCPCS: 95117; 95165

== ENCOUNTER 2025-03-03 13:59 | Outpatient (AMB) | payer MEDICARE, SELFPAY ==
--- OUTSIDE RECORDS SUMMARY | 2025-03-03 17:35 | XMS_ITS | Data Portability ---
Author Organization [place] - [facility] Surgeons [facility], [facility] Address [address] [place] [address] Care Team Providers Care Recording Artist Name Role Phone CHRISTIN WILSON Referring Provider [phone] Assessment Encounter Date Assessment Date Assessment LastModified by Organization Details LastModified Time 09/05/2023 09/05/2023 A: Pt has multiple TP's in his L glutes. Less discomfort after treatment. No pain with pre's. P: Continue per plan of care. Pt encouraged to stretch prior to and after golfing and to release TP's using a cane or a firm ball (raquetball). [email or web address] Not available 09/05/2023 16:08:41 09/07/2023 09/07/2023 A: Pt has fewer TP's in his L gluteal, x1 in R gluteal. Pt denied pain with therex. No pain with standing or walking in L hip/gluteal. P: Continue per plan of care. [email or web address] Not available 09/07/2023 13:55:06 09/11/2023 09/11/2023 A: Pt has some hip extensor weakness on his right side. TP's are decreasing. P: Continue per plan of care. Not available 09/11/2023 12:06:32 09/18/2023 09/18/2023 A: Pt was able to be on his boat for 10 hours without LB, gluteal or hip pain. P: Continue per plan of care. Progress HEP next visit. Plan to D/C. [email or web address] Not available 09/18/2023 15:06:55 09/21/2023 09/21/2023 A: Pt has progressed well with treatments. He will continue with his HEP. P: D/C w HEP Not available 09/21/2023 12:20:07 Plan of Treatment Reminders Order Date Submit Date Provider Last Modified By Organization Details Last Modified Time Details Appointments None record ed. Lab None record ed. Referral None record ed. Procedures None record ed. Surgeries None record ed. Imaging None record ed. Medication Orders None record ed. Patient TargetsNo targets recorded. Patient InstructionsNo instructions recorded. Reason for Referral None Reported. Problems Name Problem SNOMED Code Status Onset Date Resolution Date Notes Provider Name and Address Organization Details Recorded Time No complaints [id number] Active Status : 'I'; Not Available [facility] 4 09:11:12 Problem Notes None recorded. Procedures Surgical History Date Name Laterality Status Provider Name and Address Organization Details Recorded Time 4 16452 Therapeutic Exercise (1:1) completed Richard Saunders PT [address], [place], [address], [facility] 09/21/2023 12:19:23 4 29177: Manual therapy completed Richard Saunders PT [address], [place], [address], [facility] 09/19/2023 15:46:44 4 85028 Therapeutic Exercise (1:1) completed Debora Salinas, CONTRACTING SPECIALIST [address], [place], [address], [facility] 09/18/2023 15:07:20 4 60479: Manual therapy completed Debora Salinas PTA [address], [place], [address], [facility] 09/18/2023 15:07:28 4 39930 Therapeutic Exercise (1:1) completed Richard Saunders PT [address], [place], [address], [facility] 09/11/2023 11:35:35 4 39236: Manual therapy completed Richard Saunders PT [address], [place], [address], [facility] 09/11/2023 11:35:17 4 99172 Therapeutic Exercise (1:1) completed Debora Salinas, CONTRACTING SPECIALIST [address], [place], [address], [facility] 09/07/2023 13:55:14 4 72658: Manual therapy completed Debora Salinas, CONTRACTING SPECIALIST [address], [place], [address], [facility] 09/07/2023 13:55:12 4 41581 Therapeutic Exercise (1:1) completed Debora Salinas, CONTRACTING SPECIALIST [address], [place], [address], [facility] 09/05/2023 14:49:22 4 68324: Manual therapy completed Debora Salinas, CONTRACTING SPECIALIST [address], [place], [address], [facility] 09/05/2023 16:06:41 4 27337 Therapeutic Exercise (1:1) completed Richard Saunders, PT [address], [place], [address], [facility] 09/01/2023 13:43:37 4 45960: Manual therapy completed Richard Saunders PT [address], [place], [address], [facility] 09/01/2023 13:43:39 4 17257 Therapeutic Exercise (1:1) completed Richard Saunders PT [address], [place], [address], [facility] 08/29/2023 10:35:36 4 77781: Low complexity PT Eval completed Richard Saunders, PT [address], [place], [address], [facility] 08/29/2023 10:26:06 4 G8421 BMI Not Calculated, Reason Not Specified completed Richard Saunders, PT [address], [place], [address], [facility] 08/29/2023 10:25:50 4 G8427 Current Medication Documented completed Richard Saunders, PT [address], [place], [address], [facility] 08/29/2023 10:25:58 Imaging Results None recorded. Procedure Notes None recorded. Medical Equipment None Reported. Medications Name Sig Start Date Stop Date Status Note LastModified by Organization Details LastModified Time amoxicillin 500 mg capsule TAKE 4 CAPSULES BY MOUTH 1 HOUR PRIOR TO DENTAL APPOINTMENT active Not Available Not Available Not Available tamsulosin 0.4 mg capsule TAKE 1 CAPSULE BY MOUTH DAILY. TAKE 30 MINS AFTER SAME MEAL EVERY DAY. active Not Available Not Available No t Available trazodone 100 mg tablet TAKE 1 TABLET BY MOUTH EVERY DAY AT BEDTIME NEEDED FOR SLEEP active Not Available Not Available No t Available pantoprazole 40 mg tablet,delay ed release TAKE 1 TABLET BY MOUTH EVERY DAY active Not Available Not Available No t Available simvastatin 20 mg tablet TAKE 1 TABLET BY MOUTH EVERYDAY AT BEDTIME active Not Available Not Available No t Available gabapentin 300 mg capsule TAKE 1 CAPSULE BY MOUTH FOUR TIMES A DAY active Not Available Not Available Not Available diclofenac sodium 75 mg tablet,delay ed release TAKE 1 TABLET BY MOUTH 2 TIMES DAILY FOR 60 DAYS. active Not Available Not Available No t Available montelukast 10 mg tablet TAKE 1 TABLET BY MOUTH EVERYDAY AT BEDTIME active Not Available Not Available No t Available diclofenac sodium 50 mg tablet,delay ed release TAKE 1 TABLET BY MOUTH 3 TIMES A DAY NEEDED FOR PAIN active Not Available Not Available No t Available ondansetron 4 mg disintegrati ng tablet TAKE 1 TABLET BY MOUTH EVERY 8 HOURS FOR NAUSEA active Not Available Not Available No t Available oxycodone 5 mg tablet TAKE 1 TABLET BY MOUTH EVERY 8 HOURS NEEDED SEVERE PAIN active Not Available Not Available Not Available valsartan 160 mg tablet TAKE 1 TABLET BY MOUTH EVERY DAY active Not Available Not Available No t Available valsartan 160 mg-hydrochlo rothiazide 25 mg tablet TAKE 1 TABLET BY MOUTH EVERY DAY active Not Available Not Available No t Available ranitidine HCl raNITIdine HCl 300MG Capsule 2014 active Statu s: 'Curr ent'; Not Available Not Available Not Available oxycodone HCl-oxycodon e-ASA oxyCODONE HCl 5MG Tablet 1 every bedtime 2013 active Statu s: 'Curr ent'; Not Available Not Available Not Available Vitals None Recorded Social History None recorded. Functional Status None recorded. Mental Status None recorded. Family History Nothing Reported. Medical History No medical history recorded. Past Encounters Encounter ID Performer Location Encounter Start Date Encounter Closed Date Diagnosis/Indication Diagnosis SNOMED-CT Code Diagnosis ICD10 Code Diagnosis IMO Codes Diagnosis Note [id number] Richard Saunders, PT [facility] [address] [place] [address] 08/29/2023 09:56:23 08/29/2023 10:40:38 Low back pain 053933866 M54.50 [id number] Richard Saunders, PT [facility] [address] [place] [address] 09/01/2023 12:59:55 09/01/2023 13:44:01 Low back pain [id number] M54.50 [id number] Debora Salinas, CONTRACTING SPECIALIST [facility] [address] [place] [address] 09/05/2023 12:25:57 09/05/2023 16:09:14 Low back pain [id number] M54.50 [id number] Debora Salinas, CONTRACTING SPECIALIST [facility] [address] [place] [address] 09/07/2023 12:18:25 09/07/2023 13:56:21 Low back pain [id number] M54.50 [id number] Richard Saunders, PT [facility] [address] [place] [address] 09/11/2023 11:00:10 09/11/2023 12:06:57 Low back pain [id number] M54.50 [id number] Debora Salinas, CONTRACTING SPECIALIST [facility] [address] [place] [address] 09/18/2023 11:54:20 09/18/2023 15:10:02 Low back pain [id number] M54.50 [id number] Richard Saunders, PT [facility] [address] [place] [address] 09/21/2023 11:20:29 09/21/2023 12:20:48 Low back pain [id number] M54.50 Health Concerns Section Related Observation LastModified by Organization Detai ls LastModified Time None Recorded Concern Status LastModified by Organization Details LastModified Time None Recorded Advance Directives Directive None Recorded Payers Insurance Date Sequence Insurance Name Policy Number Policy Mauricio Covered Member ID Mauricio Member ID Guarantor Name 09/21/2023 2 [place] [facility] [id number] Nik Greenberg Atkinson [id number] Nik Atkinson 09/15/2023 1 [place]ARE [place]: [facility] [employer] Nik Greenberg Atkinson [id number] Nik L Demetrio Notes Date Note Type Note Provider Name and Address Organization Details Recorded Time 09/05/2023 text/html Pt states that earlier this morning he had 4/10 pain this morning. I felt better after moving around. Pt reports he golfed 18 holes, without pain. Debora Salinas, CONTRACTING SPECIALIST [address], [place], [address], [facility] 09/05/2023 16:09:05 09/07/2023 text/html Pt states that he golfed 9 holes after therapy last visit, my legs were sore after golfing! Pt reports no pain coming in today. I felt good since I woke up. Debora Salinas, CONTRACTING SPECIALIST [address], [place], [address], [facility] 09/07/2023 13:56:04 09/11/2023 text/html Pt states that he thinks he over did it. Richard Saunders, PT [address], [place], [address], [facility] 09/11/2023 12:06:48 09/18/2023 text/html Pt reports he went fishing over the weekend, I was on a boat for 10 hours. I felt good! Pt reports no pain coming in today. Debora Salinas, CONTRACTING SPECIALIST [address], [place], [address], [facility] 09/18/2023 15:09:28 09/21/2023 text/html Pt states his back is trending in the right direction. Richard Saunders, PT [address], [place], [address], [facility] 09/21/2023 12:20:40
== END 2025-03-03 14:05 | disposition home or self-care (01) ==
LOC: HO.HMGAL 13:59
PROVIDERS: PCP Internal Medicine; Visit Provider Registered Nurse Emergency
DX: J30.89 Other allergic rhinitis (principal)
CPT/HCPCS: 95117; 95165

== ENCOUNTER 2025-03-17 14:10 | Outpatient (AMB) | payer MEDICARE, SELFPAY | END 2025-03-17 14:11 | disposition home or self-care (01) | LOC: HO.HMGAL 14:10 | PROVIDERS: PCP Internal Medicine; Visit Provider Registered Nurse Emergency | DX: J30.89 Other allergic rhinitis (principal) | CPT/HCPCS: 95117; 95165 ==

== ENCOUNTER 2025-04-02 11:47 | Outpatient (AMB) | payer MEDICARE, SELFPAY ==
--- OUTSIDE RECORDS SUMMARY | 2025-04-02 22:59 | XMS_ITS | Data Portability ---
Author Organization [place] - [facility], [facility] Address [address] [place] [address] Care Team Providers Care Nurse Liaison Name Role Phone CHRISTIN WILSON Referring Provider [phone] Assessment Encounter Date Assessment Date Assessment LastModified [...] decreasing. P: Continue per plan of care. [email or web address] Not available 09/11/2023 12:06:32 09/18/2023 09/18/2023 A: Pt was able to be on his boat for 10 hours without LB, gluteal or hip pain. P: Continue per plan of care. Progress HEP next visit. Plan to D/C. [email or web address] Not available 09/18/2023 15:06:55 09/21/2023 09/21/2023 A: Pt has progressed well with treatments. He will continue with his HEP. P: D/C w HEP [email or web address] Not available 09/21/2023 12:20:07 Plan of Treatment [...] Address Organization Details Recorded Time No complaints [id number] Active Status : 'I'; Not Available [facility] 4 09:11:12 Problem Notes None recorded. Procedures Surgical History Date Name Laterality Status Provider Name and Address Organization Details Recorded Time 4 82023 Therapeutic Exercise (1:1) completed Richard Saunders PT [address], [place], [address], [facility] 09/21/2023 12:19:23 4 20556: Manual therapy completed Richard Saunders PT [address], [place], [address], [facility] 09/19/2023 15:46:44 4 70086 Therapeutic Exercise (1:1) completed Debora Salinas, BUSINESS TRAVEL CONSULTANT [address], [place], [address], [facility] 09/18/2023 15:07:20 4 43078: Manual therapy completed Debora Salinas PTA [address], [place], [address], [facility] 09/18/2023 15:07:28 4 04824 Therapeutic Exercise (1:1) completed Richard Saunders PT [address], [place], [address], [facility] 09/11/2023 11:35:35 4 76914: Manual therapy completed Richard Saunders PT [address], [place], [address], [facility] 09/11/2023 11:35:17 4 85442 Therapeutic Exercise (1:1) completed Debora Salinas, BUSINESS TRAVEL CONSULTANT [address], [place], [address], [facility] 09/07/2023 13:55:14 4 76032: Manual therapy completed Debora Salinas, BUSINESS TRAVEL CONSULTANT [address], [place], [address], [facility] 09/07/2023 13:55:12 4 07748 Therapeutic Exercise (1:1) completed Debora Salinas, BUSINESS TRAVEL CONSULTANT [address], [place], [address], [facility] 09/05/2023 14:49:22 4 92677: Manual therapy completed Debora Salinas, BUSINESS TRAVEL CONSULTANT [address], [place], [address], [facility] 09/05/2023 16:06:41 4 84606 Therapeutic Exercise (1:1) completed Richard Saunders, PT [address], [place], [address], [facility] 09/01/2023 13:43:37 4 08698: Manual therapy completed Richard Saunders PT [address], [place], [address], [facility] 09/01/2023 13:43:39 4 28732 Therapeutic Exercise (1:1) completed Richard Saunders PT [address], [place], [address], [facility] 08/29/2023 10:35:36 4 47073: Low complexity PT Eval completed Richard Saunders, PT [address], [place], [address], [facility] 08/29/2023 10:26:06 4 G8421 BMI Not Calculated, Reason Not Specified completed Richard Saunders, PT [address], [place], [address], [facility] 08/29/2023 10:25:50 4 G8427 Current Medication Documented completed Richard Saunders, PT [address], [place], [address], [facility] 08/29/2023 10:25:58 Imaging Results None recorded. Procedure [...] ICD10 Code Diagnosis IMO Codes Diagnosis Note [id number] Richard Saunders, PT [facility] [address] [place] [address] 08/29/2023 09:56:23 08/29/2023 10:40:38 Low back pain [id number] M54.50 [id number] Richard Saunders, PT [facility] [address] [place] [address] 09/01/2023 12:59:55 09/01/2023 13:44:01 Low back pain [id number] M54.50 [id number] Debora Salinas, BUSINESS TRAVEL CONSULTANT [facility] [address] [place] [address] 09/05/2023 12:25:57 09/05/2023 16:09:14 Low back pain [id number] M54.50 [id number] Debora Salinas, BUSINESS TRAVEL CONSULTANT [facility] [address] [place] [address] 09/07/2023 12:18:25 09/07/2023 13:56:21 Low back pain [id number] M54.50 [id number] Richard Saunders, PT [facility] [address] [place] [address] 09/11/2023 11:00:10 09/11/2023 12:06:57 Low back pain [id number] M54.50 [id number] Debora Salinas, BUSINESS TRAVEL CONSULTANT [facility] [address] [place] [address] 09/18/2023 11:54:20 09/18/2023 15:10:02 Low back pain [id number] M54.50 [id number] Richard Saunders, PT [facility] [address] [place] [address] 09/21/2023 11:20:29 09/21/2023 12:20:48 Low back pain [id number] M54.50 Health Concerns Section Related Observation LastModified by Organization Detai ls LastModified Time None Recorded Concern Status LastModified by Organization Details LastModified Time None Recorded Advance Directives Directive None Recorded Payers Insurance Date Sequence Insurance Name Policy Number Policy Mauricio Covered Member ID Mauricio Member ID Guarantor Name 09/21/2023 2 [place] [facility] [id number] Nik Greenberg Atkinson [id number] Nik Atkinson 09/15/2023 1 MED[place]ARE [place]: [facility] [employer] Nik Greenberg Atkinson [id number] Nik L Demetrio Notes Date Note Type Note Provider Name and Address Organization Details Recorded Time 09/05/2023 text/html Pt states that earlier this morning he had 4/10 pain this morning. I felt better after moving around. Pt reports he golfed 18 holes, without pain. Debora Salinas, BUSINESS TRAVEL CONSULTANT [address], [place], [address], [facility] 09/05/2023 16:09:05 09/07/2023 text/html Pt states that he golfed 9 holes after therapy last visit, my legs were sore after golfing! Pt reports no pain coming in today. I felt good since I woke up. Debora Salinas, BUSINESS TRAVEL CONSULTANT [address], [place], [address], [facility] 09/07/2023 13:56:04 09/11/2023 text/html Pt states that he thinks he over did it. Richard Saunders, PT [address], [place], [address], [facility] 09/11/2023 12:06:48 09/18/2023 text/html Pt reports he went fishing over the weekend, I was on a boat for 10 hours. I felt good! Pt reports no pain coming in today. Debora Salinas, BUSINESS TRAVEL CONSULTANT [address], [place], [address], [facility] [place] [facility] 09/18/2023 15:09:28 09/21/2023 text/html Pt states his back is trending in the right direction. Richard Saunders, PT [address], [place], [address], [facility] 09/21/2023 12:20:40
== END 2025-04-02 11:48 | disposition home or self-care (01) ==
LOC: HO.HMGAL 11:47
PROVIDERS: PCP Internal Medicine; Visit Provider Registered Nurse Emergency
DX: J30.89 Other allergic rhinitis (principal)
CPT/HCPCS: 95117; 95165

== ENCOUNTER 2025-04-14 14:12 | Outpatient (AMB) | payer MEDICARE, SELFPAY ==
--- OUTSIDE RECORDS SUMMARY | 2025-04-14 17:34 | XMS_ITS | Clinical Summary ---
Author Organization [place] [address] [address] [facility] Building Address [address] [place] [address] [place] [address] Phone Care Team Providers Care Potato Chip Processing Supervisor Name Role Phone Irish Latif NP Primary Care Provider [phone] Allergies Active Allergy Reactions Criticality Noted Date Comments Pollen Extracts 04/30/2021 Medications simvastatin (ZOCOR) 20 mg tablet TAKE 1 TABLET BY MOUTH EVERYDAY AT BEDTIME 90 tablet 3 5 Active diclofenac (VOLTAREN) 75 mg EC tablet TAKE 1 TABLET BY MOUTH 2 TIMES DAILY FOR 60 DAYS. 60 tablet 1 5 Active pantoprazole (PROTONIX) 40 mg EC tablet TAKE 1 TABLET BY MOUTH EVERY DAY 90 tablet 1 5 Active montelukast (SINGULAIR) 10 mg tablet TAKE 1 TABLET BY MOUTH EVERYDAY AT BEDTIME 90 tablet 1 5 Active gabapentin (NEURONTIN) 300 mg capsule TAKE 1 CAPSULE BY MOUTH FOUR TIMES A DAY 360 capsule 1 5 Active valsartan-hydr oCHLOROthiazid e (DIOVAN-HCT) 160-25 mg per tablet TAKE 1 TABLET BY MOUTH EVERY DAY 90 tablet 1 5 Active traZODone (DESYREL) 100 mg tablet TAKE 1 TABLET BY MOUTH EVERY DAY AT BEDTIME NEEDED FOR SLEEP 90 tablet 1 5 Active valsartan-hydr oCHLOROthiazid e (DIOVAN-HCT) 160-25 mg per tablet TAKE 1 TABLET BY MOUTH EVERY DAY 90 tablet 1 5 025 Discontinued traZODone (DESYREL) 100 mg tablet TAKE 1 TABLET BY MOUTH AT BEDTIME NEEDED FOR SLEEP. 90 tablet 1 5 025 Discontinued Active Problems Problem [...] Encounters Date Type Department Care Team Description 03/22/2025 5:15 AM EST Ancillary Procedure [facility] - [address] [facility] [address] [place] [phone] 02/25/2025 1:30 PM EDT Office Visit General Surgery - [place] [address] [place] [phone] Hortencia Glynn MD Non-recurrent bilateral inguinal hernia without obstruction or gangrene (Primary Dx); Sick sinus syndrome (CMS/HCC V24, CMS/HCC V28) from Last 3 Months Immunizations Immunization Administration [...] Date Site/Laterality Comments OTHER SURGICAL HISTORY PROCEDURE: [place] ARTHRP ACETBLR/PROX FEM PROSTC AGRFT/ALGRFT HERNIA REPAIR PROCEDURE: FL REPAIR FIRST ABDOMINAL WALL HERNIA HAND SURGERY 2011 Right PROCEDURE: HISTORICAL HAND SURGERY HIP ARTHROPLASTY 2013 Left PROCEDURE: HISTORICAL HIP REPLACEMENT OTHER SURGICAL HISTORY 2004 PROCEDURE: FL RAD RESECTION TUMOR SOFT TISSUE BACK/FLANK <5CM; [...] care for your loved ones. For example, assistant child care teacher or elderly care for an older [...] Sign Reading Time Taken Comments Blood Pressure 152/86 02/25/2025 1:40 PM EDT Pulse 79 02/25/2025 1:40 PM EDT Temperature 36.4 C (97.5 F) 02/25/2025 1:40 PM EDT Respiratory Rate - - Oxygen Saturation 98% 06/04/2024 11:15 AM EST Inhaled Oxygen Concentration - - Weight 75.8 kg (167 lb) 02/25/2025 1:40 PM EDT Height 180.3 cm (5' 11 ) 02/25/2025 1:40 PM EDT Body Mass Index 23.29 02/25/2025 1:40 PM EDT Plan of Treatment Upcoming Encounters Date Type Department Care Team (Late st Contact Info) Description 05/02/2025 1:00 PM EST Office Visit [facility] Medicine [facility] [address] [place] [address] Irish Latif NP [address] [place] [address] 01/06/2026 10:30 AM EDT Ancillary Procedure [facility] [address] [facility] [address] [place] [phone] Health Maintenance Due Date Last Done Comments Zoster Vaccines (1 of 2) 2005 COVID-19 Vaccine ( season) 2025 02/13/2025, 01/17/2024, 01/14/2024, Additional history exists Falls Risk Assessment 10/30/2025 [...] Years Completed 10/25/2023 Depression Screening Completed 10/30/2024 Influenza Vaccine Completed 02/13/2025, , 01/23/2023, Additional [...] this topic Medical Devices Implanted Type Area Traveling Sales Representative Device Identifier Shelf Expiration Date Model / Serial / Lot Abbt-Stju 1210 Accent(Tm) Sr Rf [id number] Implanted: (Quantity not on file) Cardiac Pacemaker [facility] [employer] 1210 ACCENT(TM) SR RF / [id number] / Abbt-Stju Accent Sr Rf [id number] Implanted: (Quantity not on file) Cardiac Pacemaker [facility] [employer] ACCENT SR RF 1210 / [id number] / Procedures Procedure Name Priority Date/Time Associated Diagnosis Comments CARDIAC DEVICE CHECK- REMOTE- MURJ Routine 03/22/2025 5:10 AM EST COMPREHENSIVE METABOLIC PANEL Routine 10/30/2024 3:24 PM EDT Screening for metabolic disorder LIPID PANEL WITH REFLEX TO DIRECT LDL Routine 10/30/2024 3:24 PM EDT Screening for metabolic disorder Encounter for lipid screening for cardiovascular disease HM HEPATITIS C SCREENING Routine 07/21/2022 from Last 3 Months or Most Recently Relevant to Health Maintenance Results * Cardiac device check - Remote- MURJ (03/22/2025 5:10 AM EST) Date Time Interrogation Session [id number] CV DEVICE CHECK Type Interrogation Session Remote Scheduled CV DEVICE CHECK Implantable Pulse Generator Traveling Sales Representative [employer] CV DEVICE CHECK Implantable Pulse Generator Type IPG CV DEVICE CHECK Implantable Pulse Generator Model 1210 Accent(TM) SR RF CV DEVICE CHECK Implantable Pulse Generator Serial Number [id number] CV DEVICE CHECK Implantable Pulse Generator Implant Date [id number] CV DEVICE CHECK Battery Remaining Percentage 25.00 CV DEVICE CHECK Battery Remaining Longevity 36.0 CV DEVICE CHECK Battery Voltage 2.920 CV D EVICE CHECK Battery TIP CUTTER Trigger 2.600 CV DEVICE CHECK Battery Status Middle of Service CV DEVICE CHECK Jc Statistic RV Percent Paced 1.00 CV DEVICE CHECK Lead Channel Sensing Intrinsic Amplitude 7.300 CV DEVICE CHECK Lead Channel Setting Sensing Sensitivity 3.50 CV DEVICE CHECK Lead Channel Impedance Value 360 CV DEVICE CHECK Lead Channel Setting Pacing Amplitude 1.000 CV DEVICE CHECK Lead Channel Setting Pacing Pulse Width 0.5 CV DEVICE CHECK Jc Setting Mode (NBG Code) VVI CV DEVICE CHECK Jc Setting Lower Rate Limit 50 CV DEVICE CHECK Cj Setting Maximum Sensor Rate 130 CV DEVICE CHECK Date of Service 2025-04-11 CV DEVICE CHECK Anatomical Region Laterality Modality Device Interroga tion 03/19/2025 3:51 AM EST Impressions 03/21/2025 11:33 AM EST Normal Remote: With Events * Normal Device Function * Events or Alerts: 23 Noise 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% * Battery: Battery is at 25%, 3.00 yrs * Sensing, impedance and thresholds reviewed * Programmed parameters reviewed * Presenting rhythm reviewed * Heart Rate Histograms reviewed Narrative Procedure Note Barrett Shaffer MD - 03/22/2025 IMPRESSION: Normal Remote: With Events * Normal Device Function * Events or Alerts: 23 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% * Battery: Battery is at 25%, 3.00 yrs * Sensing, impedance and thresholds reviewed * Programmed parameters reviewed * Presenting rhythm reviewed * Heart Rate Histograms reviewed us Barrett Shaffer MD CV IMPLANTABLE CARDIAC DEVICE PROCEDURES Final Result * (ABNORMAL) Lipid panel with reflex to direct LDL (10/30/2024 3:24 PM EDT) Cholesterol 175 0 - 200 mg/dL LAB CHEMISTRY METHOD 10/30/2024 6:[address] [facility] Triglycerides 196(H) 0 - 150 mg/dL LAB CHEMISTRY METHOD 10/30/2024 6:[address] [facility] HDL 51 >=40 mg/dL LAB CHEMISTRY METHOD 10/30/2024 6:[address] [facility] LDL Calculated 85 0 - 100 mg/dL LAB CHEMISTRY METHOD 10/30/2024 6:[address] [facility] VLDL Cholesterol José Miguel 39.2 mg/dL LAB CHEMISTRY METHOD 10/30/2024 6:[address] [facility] Non HDL Chol. (LDL+VLDL) 124 <145 mg/dL LAB CHEMISTRY METHOD 10/30/2024 6:[address] [facility] Chol/HDL Ratio 3.4 0.0 - 4.4 LAB CHEMISTRY METHOD 10/30/2024 6:[address] [facility] Blood Venous blood specimen / Unknown Venipuncture / Unknown 10/30/2024 3:24 PM EDT 10/30/2024 3:24 PM EDT Irish Latif NP LAB BLOOD ORDERABLES Final Resu lt [facility] [address] [place] [address], [place] [phone] * (ABNORMAL) Comprehensive metabolic panel (10/30/2024 3:24 PM EDT) Sodium 140 133 - 145 mmol/L LAB CHEMISTRY METHOD 10/30/2024 6:[address] [facility] Potassium 4.0 3.5 - 5.5 mmol/L LAB CHEMISTRY METHOD 10/30/2024 6:[address] [facility] Chloride 102 96 - 110 mmol/L [facility]STR[facility] 30 21 - 32 mmol/L [facility] CHE[facility] Anion Gap 8 3 - 11 LAB CHE[facility]STRY [facility] Glucose 100 70 - 100 mg/dL LAB CHEMISTRY METHOD 10/30/2024 6:46 PM [facility] BUN 26(H) 5 - 25 mg/dL LAB CHEMISTRY METHOD 10/30/2024 6:46 PM [facility] Creatinine 0.90 0.70 - 1.30 mg/dL LAB CHEMISTRY METHOD [facility] eGFR 92 >=60 mL/min/1. 73m2 LAB CHEMISTRY METHOD 10/30/2024 6:46 PM [facility] Comment:Calculation based on the Chronic Kidney Disease Epidemiology Collaboration (CKD-EPI) equation refit without adjustment for race. BUN/Creatinine Ratio 28.9 LAB CHEMISTRY METHOD 10/30/2024 6:46 PM [facility] Calcium 9.2 8.5 - 10.5 mg/dL LAB CHEMISTRY METHOD 10/30[facility] AST (SGOT) 18 10 - 42 unit/L LAB CHEMISTRY METHOD 10/30/2024 6:[address] [facility] ALT (SGPT) 23 10 - 60 unit/L LAB CHEMISTRY METHOD 10/30/2024 6:[address] [facility] Alkaline Phosphatase 47 42 - 121 unit/L LAB CHEMISTRY METHOD 10/30/2024 6:[address] [facility] Total Protein 6.7 6.0 - 8.0 g/dL LAB CHEMISTRY METHOD 10/30/2024 6:[address] [facility] Albumin 4.2 3.2 - 5.0 g/dL LAB CHEMISTRY METHOD 10/30/2024 6:[address] [facility] Total Bilirubin 1.1 0.0 - 1.4 mg/dL LAB CHEMISTRY METHOD 10/30/2024 6:[address] [facility] Blood Venous blood specimen / Unknown Venipuncture / Unknown 10/30/2024 3:24 PM EDT 10/30/2024 3:24 PM EDT Irish Latif NP LAB BLOOD ORDERABLES Final Resu lt [facility] [address] [place] [address], * Hepatitis C Screening (07/21/2022) Hepatitis C Screening negative Historical Provider HEALTH MAINTENANCE Final Result from Last 3 Months or Most Recently Relevant to Health Maintenance Insurance [facility] [place] [address] MEDICARE [facility] Advance Directives Documents on File Type Date Recorded 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
--- OUTSIDE RECORDS SUMMARY | 2025-04-14 17:34 | XMS_ITS | Data Portability ---
Author Organization [place] - [facility] Address [address] [place] [address] Care Team Providers Care Credit Front Office Developer Name Role Phone CHRISTIN WILSON Referring Provider [phone] Assessment Encounter Date Assessment Date Assessment LastModified [...] decreasing. P: Continue per plan of care. [email or web address] Not available 09/11/2023 12:06:32 09/18/2023 09/18/2023 A: Pt was able to be on his boat for 10 hours without LB, gluteal or hip pain. P: Continue per plan of care. Progress HEP next visit. Plan to D/C. [email or web address] Not available 09/18/2023 15:06:55 09/21/2023 09/21/2023 A: Pt has progressed well with treatments. He will continue with his HEP. P: D/C w HEP [email or web address] Not available 09/21/2023 12:20:07 Plan of Treatment [...] Address Organization Details Recorded Time No complaints [id number] Active Status : 'I'; Not Available [facility] 4 09:11:12 Problem Notes None recorded. Procedures Surgical History Date Name Laterality Status Provider Name and Address Organization Details Recorded Time 4 82125 Therapeutic Exercise (1:1) completed Richard Saunders PT [address], [place], [address], [facility] 09/21/2023 12:19:23 4 89444: Manual therapy completed Richard Saunders PT [address], [place], [address], [facility] 09/19/2023 15:46:44 4 38133 Therapeutic Exercise (1:1) completed Debora Salinas, SOAP SLABBER [address], [place], [address], [facility] 09/18/2023 15:07:20 4 48142: Manual therapy completed Debora Salinas PTA [address], [place], [address], [facility] 09/18/2023 15:07:28 4 04298 Therapeutic Exercise (1:1) completed Richard Saunders PT [address], [place], [address], [facility] 09/11/2023 11:35:35 4 06928: Manual therapy completed Richard Saunders PT [address], [place], [address], [facility] 09/11/2023 11:35:17 4 49399 Therapeutic Exercise (1:1) completed Debora Salinas, SOAP SLABBER [address], [place], [address], [facility] 09/07/2023 13:55:14 4 70115: Manual therapy completed Debora Salinas, SOAP SLABBER [address], [place], [address], [facility] 09/07/2023 13:55:12 4 86164 Therapeutic Exercise (1:1) completed Debora Salinas, SOAP SLABBER [address], [place], [address], [facility] 09/05/2023 14:49:22 4 16123: Manual therapy completed Debora Salinas, SOAP SLABBER [address], [place], [address], [facility] 09/05/2023 16:06:41 4 90456 Therapeutic Exercise (1:1) completed Richard Saunders, PT [address], [place], [address], [facility] 09/01/2023 13:43:37 4 66874: Manual therapy completed Richard Saunders PT [address], [place], [address], [facility] 09/01/2023 13:43:39 4 96710 Therapeutic Exercise (1:1) completed Richard Saunders PT [address], [place], [address], [facility] 08/29/2023 10:35:36 4 68030: Low complexity PT Eval completed Richard Saunders, PT [address], [place], [address], [facility] 08/29/2023 10:26:06 4 G8421 BMI Not Calculated, Reason Not Specified completed Richard Saunders, PT [address], [place], [address], [facility] 08/29/2023 10:25:50 4 G8427 Current Medication Documented completed Richard Saunders, PT [address], [place], [address], [facility] 08/29/2023 10:25:58 Imaging Results None [...] ICD10 Code Diagnosis IMO Codes Diagnosis Note [id number] Richard Saunders, PT [facility] [address] [place] [address] 08/29/2023 09:56:23 08/29/2023 10:40:38 Low back pain [id number] M54.50 [id number] Richard Saunders, PT [facility] [address] [place] [address] 09/01/2023 12:59:55 09/01/2023 13:44:01 Low back pain [id number] M54.50 [id number] Debora Salinas, SOAP SLABBER [facility] [address] [place] [address] 09/05/2023 12:25:57 09/05/2023 16:09:14 Low back pain [id number] M54.50 [id number] Debora Salinas, SOAP SLABBER [facility] [address] [place] [address] 09/07/2023 12:18:25 09/07/2023 13:56:21 Low back pain [id number] M54.50 [id number] Richard Saunders, PT [facility] [address] [place] [address] 09/11/2023 11:00:10 09/11/2023 12:06:57 Low back pain [id number] M54.50 [id number] Debora Salinas, SOAP SLABBER [facility] [address] [place] [address] 09/18/2023 11:54:20 09/18/2023 15:10:02 Low back pain [id number] M54.50 [id number] Richard Saunders, PT [facility] [address] [place] [address] 09/21/2023 11:20:29 09/21/2023 12:20:48 Low back pain [id number] M54.50 Health Concerns Section Related Observation LastModified by Organization Detai ls LastModified Time None Recorded Concern Status LastModified by Organization Details LastModified Time None Recorded Advance Directives Directive None Recorded Payers Insurance Date Sequence Insurance Name Policy Number Policy Mauricio Covered Member ID Mauricio Member ID Guarantor Name 09/21/2023 2 [place] [facility] [id number] Nik Greenberg Atkinson [id number] Nik Atkinson 09/15/2023 1 MEDICARE [place]: [facility] [employer] Nik Greenberg Atkinson [id number] Nik L Demetrio Notes Date Note Type Note Provider Name and Address Organization Details Recorded Time 09/05/2023 text/html Pt states that earlier this morning he had 4/10 pain this morning. I felt better after moving around. Pt reports he golfed 18 holes, without pain. Debora Salinas, SOAP SLABBER [address], [place], [address], [facility] 09/05/2023 16:09:05 09/07/2023 text/html Pt states that he golfed 9 holes after therapy last visit, my legs were sore after golfing! Pt reports no pain coming in today. I felt good since I woke up. Debora Salinas, SOAP SLABBER [address], [place], [address], [facility] 09/07/2023 13:56:04 09/11/2023 text/html Pt states that he thinks he over did it. Richard Saunders, PT [address], [place], [address], [facility] 09/11/2023 12:06:48 09/18/2023 text/html Pt reports he went fishing over the weekend, I was on a boat for 10 hours. I felt good! Pt reports no pain coming in today. Debora Salinas, SOAP SLABBER [address], [place], [address], [facility] 09/18/2023 15:09:28 09/21/2023 text/html Pt states his back is trending in the right direction. Richard Saunders, PT [address], [place], [address], [facility] 09/21/2023 12:20:40
== END 2025-04-14 14:13 | disposition home or self-care (01) ==
LOC: HO.HMGAL 14:12
PROVIDERS: PCP Internal Medicine; Visit Provider Registered Nurse Emergency
DX: J30.89 Other allergic rhinitis (principal)
CPT/HCPCS: 95117; 95165

== ENCOUNTER 2025-04-28 15:36 | Outpatient (AMB) | payer MEDICARE, SELFPAY ==
--- OUTSIDE RECORDS SUMMARY | 2025-04-28 22:02 | XMS_ITS | Data Portability ---
Author Organization [place] - [facility], [facility] Address [address] [place] [address] Care Team Providers Care Air Quality Engineer Name Role Phone CHRISTIN WILSON Referring Provider Assessment Encounter Date Assessment Date Assessment LastModified [...] decreasing. P: Continue per plan of care. [email or web address] Not available 09/11/2023 12:06:32 09/18/2023 09/18/2023 A: Pt was able to be on his boat for 10 hours without LB, gluteal or hip pain. P: Continue per plan of care. Progress HEP next visit. Plan to D/C. [email or web address] Not available 09/18/2023 15:06:55 09/21/2023 09/21/2023 A: Pt has progressed well with treatments. He will continue with his HEP. P: D/C w HEP [email or web address] Not available 09/21/2023 12:20:07 Plan of Treatment [...] Address Organization Details Recorded Time No complaints [id number] Active Status : 'I'; Not Available [facility] 4 09:11:12 Problem Notes None recorded. Procedures Surgical History Date Name Laterality Status Provider Name and Address Organization Details Recorded Time 4 52795 Therapeutic Exercise (1:1) completed Richard Saunders PT [address], [place], [address], [facility] 09/21/2023 12:19:23 4 85807: Manual therapy completed Richard Saunders PT [address], [place], [address], [facility] 09/19/2023 15:46:44 4 01193 Therapeutic Exercise (1:1) completed Debora Salinas, CRUSHER TENDER [address], [place], [address], [facility] 09/18/2023 15:07:20 4 21460: Manual therapy completed Debora Salinas PTA [address], [place], [address], [facility] 09/18/2023 15:07:28 4 40559 Therapeutic Exercise (1:1) completed Richard Saunders PT [address], [place], [address], [facility] 09/11/2023 11:35:35 4 59995: Manual therapy completed Richard Saunders PT [address], [place], [address], [facility] 09/11/2023 11:35:17 4 68034 Therapeutic Exercise (1:1) completed Debora Salinas, CRUSHER TENDER [address], [place], [address], [facility] 09/07/2023 13:55:14 4 35456: Manual therapy completed Debora Salinas, CRUSHER TENDER [address], [place], [address], [facility] 09/07/2023 13:55:12 4 43592 Therapeutic Exercise (1:1) completed Debora Salinas, CRUSHER TENDER [address], [place], [address], [facility] 09/05/2023 14:49:22 4 97990: Manual therapy completed Dbeora Salinas, CRUSHER TENDER [address], [place], [address], [facility] 09/05/2023 16:06:41 4 36412 Therapeutic Exercise (1:1) completed Richard Saunders, PT [address], [place], [address], [facility] 09/01/2023 13:43:37 4 09456: Manual therapy completed Richard Saunders PT [address], [place], [address], [facility] 09/01/2023 13:43:39 4 83015 Therapeutic Exercise (1:1) completed Richard Saunders PT [address], [place], [address], [facility] 08/29/2023 10:35:36 4 43812: Low complexity PT Eval completed Richard Saunders, PT [address], [place], [address], [facility] 08/29/2023 10:26:06 4 G8421 BMI Not Calculated, Reason Not Specified completed Richard Saunders, PT [address], [place], [address], [facility] 08/29/2023 10:25:50 4 G8427 Current Medication Documented completed Richard Saunders, PT [address], [place], [address], [facility] 08/29/2023 10:25:58 Imaging Results None recorded. Procedure [...] ICD10 Code Diagnosis IMO Codes Diagnosis Note [id number] Richard Saunders, PT [facility] [address] [place] [address] 08/29/2023 09:56:23 08/29/2023 10:40:38 Low back pain [id number] M54.50 [id number] Richard Saunders, PT [facility] [address] [place] [address] 09/01/2023 12:59:55 09/01/2023 13:44:01 Low back pain [id number] M54.50 [id number] Debora Salinas, CRUSHER TENDER [facility] [address] [place] [address] 09/05/2023 12:25:57 09/05/2023 16:09:14 Low back pain [id number] M54.50 [id number] Debora Salinas, CRUSHER TENDER [facility] [address] [place] [address] 09/07/2023 12:18:25 09/07/2023 13:56:21 Low back pain [id number] M54.50 [id number] Richard Saunders, PT [facility] [address] [place] [address] 09/11/2023 11:00:10 09/11/2023 12:06:57 Low back pain [id number] M54.50 [id number] Debora Salinas, CRUSHER TENDER [facility] [address] [place] [address] 09/18/2023 11:54:20 09/18/2023 15:10:02 Low back pain [id number] M54.50 [id number] Richard Saunders, PT [facility] [address] [place] [address] 09/21/2023 11:20:29 09/21/2023 12:20:48 Low back pain [id number] M54.50 Health Concerns Section Related Observation LastModified by Organization Detai ls LastModified Time None Recorded Concern Status LastModified by Organization Details LastModified Time None Recorded Advance Directives Directive None Recorded Payers Insurance Date Sequence Insurance Name Policy Number Policy Mauricio Covered Member ID Mauricio Member ID Guarantor Name 09/21/2023 2 [place] [facility] [id number] Nik Greenberg Atkinson [id number] Nik Atkinson 09/15/2023 1 MEDICARE [place]: [facility] [employer] Nik Greenberg Atkinson [id number] Nik L Demetrio Notes Date Note Type Note Provider Name and Address Organization Details Recorded Time 09/05/2023 text/html Pt states that earlier this morning he had 4/10 pain this morning. I felt better after moving around. Pt reports he golfed 18 holes, without pain. Debora Salinas, CRUSHER TENDER [address], [place], [address], [facility] 09/05/2023 16:09:05 09/07/2023 text/html Pt states that he golfed 9 holes after therapy last visit, my legs were sore after golfing! Pt reports no pain coming in today. I felt good since I woke up. Debora Salinas, CRUSHER TENDER [address], [place], [address], [facility] 09/07/2023 13:56:04 09/11/2023 text/html Pt states that he thinks he over did it. Richard Saunders, PT [address], [place], [address], [facility] 09/11/2023 12:06:48 09/18/2023 text/html Pt reports he went fishing over the weekend, I was on a boat for 10 hours. I felt good! Pt reports no pain coming in today. Debora Salinas, CRUSHER TENDER [address], [place], [address], [facility] 09/18/2023 15:09:28 09/21/2023 text/html Pt states his back is trending in the right direction. Richard Saunders, PT [address], [place], [address], [facility] 09/21/2023 12:20:40
--- OUTSIDE RECORDS SUMMARY | 2025-04-28 22:02 | XMS_ITS | Clinical Summary ---
Author Organization [place] [address] [facility] Address [address] 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 60 tablet 1 09/30/2024 Active pantoprazole (PROTONIX) 40 mg EC tablet TAKE 1 TABLET BY MOUTH EVERY DAY 90 tablet 1 02/05/2025 Active montelukast (SINGULAIR) 10 mg tablet TAKE 1 TABLET BY MOUTH EVERYDAY AT BEDTIME 90 tablet 1 02/05/2025 Active gabapentin (NEURONTIN) 300 mg capsule TAKE 1 CAPSULE BY MOUTH FOUR TIMES A DAY 360 capsule 1 02/05/2025 Active valsartan-hydro CHLOROthiazide (DIOVAN-HCT) 160-25 mg per tablet TAKE 1 TABLET BY MOUTH EVERY DAY 90 tablet 1 03/17/2025 Active traZODone (DESYREL) 100 mg tablet TAKE 1 TABLET BY MOUTH EVERY DAY AT BEDTIME NEEDED FOR SLEEP 90 tablet 1 03/17/2025 Active Active Problems Problem Noted Date Diagnosed [...] EDT): Stable, continue gabapentin. Ascending aortic aneurysm 04/30/2021 Overview (06/04/2024): His most recent echocardiogram is [...] regular exercise and walking. Sick sinus syndrome 04/30/2021 Overview (06/04/2024): [employer] single chamber pacemaker Noise on RV lead Low RV pacing percentage Assessment & Plan (06/04/2024 2:09 PM EST): The patient's device is normally functioning. He has a very low percent pacing burden. Continue in office and remote surveillance as per protocol Encounters Date Type Department Care Team Description 03/22/2025 5:15 AM EST Ancillary Procedure [facility] [address] [place] [address] 02/25/2025 1:30 PM EDT Office Visit General Surgery - [place] [address] [place] [address] Hortencia Glynn MD Non-recurrent bilateral inguinal hernia [...] Date Site/Laterality Comments OTHER SURGICAL HISTORY PROCEDURE: MO ARTHRP ACETBLR/PROX FEM PROSTC AGRFT/ALGRFT HERNIA REPAIR PROCEDURE: MO REPAIR FIRST ABDOMINAL WALL HERNIA HAND SURGERY 2011 Right PROCEDURE: HISTORICAL HAND SURGERY HIP ARTHROPLASTY 2013 Left PROCEDURE: HISTORICAL HIP REPLACEMENT OTHER SURGICAL HISTORY 2003 PROCEDURE: MO RAD RESECTION TUMOR SOFT TISSUE BACK/FLANK <5CM; [...] care for your loved ones. 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 child care attendant or elderly care for [...] on file Sexual Orientation Not on file Last Filed Vital Signs Vital Sign Reading [...] PM EST [facility] [address] [place] [address] Irish Latif, CORAL [address] [place] [address] 01/06/2026 10:30 AM EDT Ancillary Procedure [facility] - [facility] [address] [address] [place] [address] Health Maintenance Due Date Last Done Comments [...] 10/25/2023 Pneumococcal Vaccine: 50+ Years Completed 10/25/2023 Influenza Vaccine Completed 02/13/2025, , 01/23/2023, Additional history exists Depression Screening Completed 04/25/2025 HIB Vaccines Aged Out No longer eligi [...] this topic Medical Devices Implanted Type Area Family Educator Device Identifier Shelf Expiration Date Model / Serial / Lot Abbt-Stju 1210 Accent(Tm) Sr Rf [id number] Implanted: (Quantity not on file) Cardiac Pacemaker [facility] [employer] 1210 ACCENT(TM) SR RF / [id number] / Abbt-Stju Accent Sr Rf [id number] Implanted: (Quantity not on file) Cardiac Pacemaker [facility] [employer] [employer] ACCENT SR RF 1210 / [id number] / Procedures Procedure Name Priority Date/Time Associated [...] 5:10 AM EST) Date Time Interrogation Session [id number] CV DEVICE CHECK Type Interrogation Session Remote Scheduled CV DEVICE CHECK Implantable Pulse Generator Family Educator [employer] CV DEVICE CHECK Implantable Pulse Generator Type IPG CV DEVICE CHECK Implantable Pulse Generator Model 1210 Accent(TM) SR RF CV DEVICE CHECK Implantable Pulse Generator Serial Number [id number] CV DEVICE CHECK Implantable Pulse Generator Implant Date 20130902 CV DEVICE CHECK Battery Remaining Percentage 25.00 CV DEVICE CHECK Battery Remaining Longevity 36.0 CV DEVICE CHECK Battery Voltage 2.920 CV D EVICE CHECK Battery UNIT EDUCATOR Trigger 2.600 CV DEVICE CHECK Battery Status [...] or Alerts: 23 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% * Battery: Battery is at 25%, 3.00 yrs * Sensing, impedance and thresholds reviewed * Programmed parameters reviewed * Presenting rhythm reviewed * Heart Rate Histograms reviewed Narrative Procedure Note Barrett Shaffer MD - 03/22/2025 IMPRESSION: Normal Remote: With Events * Normal Device Function * Events or Alerts: 23 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 (LDL+VLDL) 124 <145 mg/dL LAB CHEMISTRY METHOD 10/30/2024 6:46 PM EDT [facility] Chol/HDL Ratio 3.4 0.0 - 4.4 LAB CHEMISTRY METHOD 10/30/2024 6:46 PM EDT [facility] Blood Venous blood specimen / Unknown Venipuncture / Unknown 10/30/2024 3:24 PM EDT 10/30/2024 3:24 PM EDT Irish Latif SILK OPENER LAB BLOOD ORDERABLES Final Resu lt [facility] [address] [place] [address], [place] [phone] * (ABNORMAL) Comprehensive metabolic panel (10/30/2024 3:24 PM EDT) Sodium 140 133 - 145 mmol/L LAB CHEMISTRY METHOD 10/30/2024 6:46 PM EDT [facility] Potassium 4.0 3.5 - 5.5 mmol/L LAB CHEMISTRY METHOD 10/30/2024 6:46 PM [facility] Chloride 102 96 - 110 mmol/L LAB CHEMISTRY METHOD 10/30/2024 6:46 PM [facility] CO2 30 21 - 32 mmol/L LAB CHEMISTRY METHOD 10/30/2024 6:46 PM [facility] Anion Gap 8 3 - 11 LAB CHEMISTRY METHOD 10/30/2024 6:46 PM [facility] Glucose 100 70 - 100 [...] LAB CHEMISTRY METHOD 10/30/2024 6:46 PM EDT [facility] Albumin 4.2 3.2 - 5.0 g/dL LAB CHEMISTRY METHOD 10/30/2024 6:46 PM EDT [facility] Total Bilirubin 1.1 0.0 - 1.4 mg/dL LAB CHEMISTRY METHOD 10/30/2024 6:46 PM EDT [facility] Blood Venous blood specimen / Unknown Venipuncture / Unknown 10/30/2024 3:24 PM EDT 10/30/2024 3:24 PM EDT Irish Latif NP LAB BLOOD ORDERABLES Final Resu lt [facility] [address] [place] [address], * Hepatitis C Screening (07/21/2022) Hepatitis C Screening negative Historical Provider HEALTH MAINTENANCE Final Result from Last 3 Months or Most Recently Relevant to Health Maintenance Insurance [facility] [place] [id number] MEDICARE [facility] Advance Directives Documents on File Type Date Recorded 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
== END 2025-04-28 15:39 | disposition home or self-care (01) ==
LOC: HO.HMGAL 15:36
PROVIDERS: PCP Internal Medicine; Visit Provider Registered Nurse Emergency
DX: J30.89 Other allergic rhinitis (principal)
CPT/HCPCS: 95117; 95165